=== PATIENT | male | born 1970 ===

== ENCOUNTER 2016-10-16 22:54 | Inpatient (IN) ==
--- NOTE | 2016-10-16 23:22 | Emergency Department Note ---
Adam Kolb Meredith, am scribing for, and in the presence of, Hunter Rey MD 23:20. Krissy Kolb Charles R, MD, personally performed the services described in this documentation, ascribed by Marleen Medina in my presence, and it is both accurate and complete 321 . Arrival - Arrival Chief Complaint: Abscess Stated Complaint: ABSCESS ED Nursing Triage Note: C/C transfer from [facility] ER for Dx fever, abscess to buttock, +FLu. Pt was given Rocephin 1g, Tylenol 1g, [id number], phenergan 25mg , Lomotil 4mg. Mode of Arrival: Stretcher Limitations: No Limitations Source: Patient, Old Records Reviewed, RN Notes Reviewed Time Seen by Provider: 10/16/16 23:04 - History of Present Illness HPI Narrative: Pt is a 46 y/o [place] male transferred to the ED by EMS from [facility] for further evaluation of abscess to the buttock and fever for the past 2 days. At the time of triage, his temperature was 103. Pt was positive for influenza A at [facility]. He was given Rocephin 1g, Tylenol 1 g, Demerol 50, phenergan 25 mg, and Lomotil 4 mg. Pt has a history of CHF, HTN, PVD, IDDM, renal failure, and multiple toe/ finger amputations. He attends dialysis on //. Pt is a current everyday smoker. Onset (ago): day(s) Allergies/Adverse Reactions: Allergies Allergy/AdvReac Type Severity Reaction Status Date / Time No Known Allergies Allergy Verified 10/16/16 23:10 Home Medications: Home Medications Medication Instructions Recorded Confirmed Type Lisinopril [Lisinopril] 10 mg PO DAILY 04/13/16 10/16/16 History Metoprolol Tartrate [Metoprolol 50 mg PO DAILY 04/13/16 10/16/16 History Tartrate] Losartan [Cozaar] 1 tablet PO DAILY 07/07/16 10/16/16 History Review of System - Review of System 12 point system: reviewed and no additional remarkable complaints except as stated - Review of System Constitutional: Present: as per HPI, fever Skin: Present: as per HPI, other (abscess to the right buttock) Medical,Surgical,& Family Hx - Medical History Cardio: History of: CHF, Hypertension, PVD Psychological: History of: Behavior Problems (VERY AGITATED UNCOOPERATIVE) Neurology: No history of: Seizures HEENT: History of: Dental Problems, HEENT Problems Endocrine: History of: Diabetes Mellitus (IDDM) (NO MEDS) Renal: History of: Dialysis (-- DR ORDONEZ), Renal Failure Musculoskeletal: History of: Amputation (TOES ON LEFT FOOT, MULTIPLE DEBRIDEMENTS TO FOOT,FINGERS TO RT &LT HANDS), Musculoskeletal Problems ( multiple finger amputations) - Surgical History Thoracic Surgeries: Patient denies;: Lobectomy Neurologic Surgeries: Patient denies: Neurologic Surgery Abdominal Surgeries: Patient denies: Abdominal Surgery - Family History Family History: Reports;: Family Cancer (father had lung cancer and maternal grandmother had breast cancer), Family Diabetes (father, paternal grandfather, siblings, mother), Family Hypertension (PARENTS) Denies;: Family Heart Disease - Social History Smoking Status: Current every day smoker Frequency of Alcohol Use: None Type of Drug Use: None Exam Vital Signs: Vital Signs Temperature 103 F H 10/16/16 22:58 Pulse Rate 87 10/16/16 22:58 Respiratory Rate 24 10/16/16 22:58 Blood Pressure 114/53 10/16/16 22:58 O2 Sat by Pulse Oximetry 88 L 10/16/16 22:58 - General General appearance: alert, in no apparent distress - Head Head exam: Present: atraumatic, normocephalic - Eye Eye exam: Present: normal appearance, PERRL, EOMI - ENT ENT exam: Present: mucous membranes moist, normal external ear exam - Neck Neck exam: Present: full ROM, trachea midline. Absent: tenderness, meningismus , lymphadenopathy, thyromegaly - Chest Chest inspection: Present: symmetric chest wall rise. Absent: tenderness, rash - Respiratory Respiratory exam: Present: normal lung sounds bilaterally. Absent: accessory muscle use, respiratory distress - Cardiovascular Cardiovascular exam: Present: regular rate, normal rhythm, normal heart sounds. Absent: murmur, rubs, gallop - Abdominal Exam Abdominal exam: Present: soft, normal bowel sounds. Absent: distention, tenderness - Extremities Exam Extremities exam: Present: full ROM, normal capillary refill. Absent: tenderness, pedal edema, calf tenderness - Back Exam Back exam: Present: full ROM. Absent: tenderness - Neurological Exam Neurological exam: Present: alert, oriented X3, CN II-XII intact. Absent: motor sensory deficit - Psychiatric Psychiatric exam: Present: normal affect, normal mood - Skin Skin exam: Present: warm, dry, other (large 12cm x 8 cm tender and indurated abscess to the right buttock) Course - Consultations Consultation #1: Hospitalist will admit patient Time: 23:36 Results - Labs CBC & BMP: 10/16/16 23:47 10/16/16 23:47 Lab Results: I have reviewed the patients labs Labs: All results reviewed from previous facility Laboratory Tests 10/16/16 23:47 WBC 15.6 H RBC 3.40 L Hgb 10.3 L Hct 31.7 L Plt Count 193 Neut % (Auto) 86.5 H Lymph % (Auto) 5.1 L Neut # (Auto) 13.5 H Lymph # (Auto) 0.8 L [place] # (Auto) 1.1 H Critical Care Time Critical Care Time: Yes Total Critical Care Time: 60 Disposition Clinical Impression: Cellulitis, Abscess of skin or subcutaneous tissue, Fever, Influenza, ESRD ( end stage renal disease) on dialysis, ESRD on hemodialysis, PVD (peripheral vascular disease) Case discussed with: patient Disposition: Still a Patient Condition: Guarded Time of Disposition: 23:37
[2016-10-16] MEDS ORDERED: PIPERACILLIN/TAZOBACTAM 2,250 MG in SODIUM CHLORIDE 0.9% 100 ML IV STA (23:37)
[2016-10-16] MEDS ORDERED: ALBUTEROL/IPRATROPIUM 3 ML NEB RESP TX STA (23:37)
[2016-10-16] MEDS ORDERED: methylPREDNISolone SOD SUC 125 MG/2 ML VIAL IV STA (23:37)
[2016-10-16] MEDS ORDERED: OSELTAMIVIR 75 MG CAPSULE PO STA (23:37)
[2016-10-16] MEDS ORDERED: VANCOMYCIN INJ 1,000 MG in SODIUM CHLORIDE 0.9% 250 ML IV STA (23:42)
[2016-10-16] MEDS ORDERED: VANCOMYCIN 1,000 MG VIAL ONE (23:59)
[2016-10-17 00:03] LABS: Basophils % 0.2 % (0.0-0.8); Hematocrit 31.7 VOL% (42.0-52.0); Hemoglobin 10.3 GM/DL (14.0-18.0); Immature Granulocytes % 0.9 %; Immature Granulocytes Absolute 0.14 #; Lymphocytes # 0.8 10*3/uL (1.4-4.0); Lymphocytes % 5.1 % (21.2-54.2); Mean Corpuscular HGB Conc 32.5 GM/DL (32-36); Mean Corpuscular Hemoglobin 30 PG (27-34); Mean Corpuscular Volume 93.2 FL (87-102); Monocytes # 1.1 10*3/uL (0.11-0.8); Monocytes % 7.3 % (1.7-12.7); Neutrophils # 13.5 10*3/uL (1.4-7.4); Neutrophils % 86.5 % (38.7-73.9); Platelet Count 193 T/CUMM (130-400); White Blood Count 15.6 T/CUMM (4-12)
[2016-10-17 00:20] LABS: Bilirubin,Total 0.9 MG/DL (0.2-1.0); Calcium 7.8 MG/DL (8.5-10.1); Osmolality,Calculated 289.7 MOS/KG (273-304); Total Protein 6.8 G/DL (6.4-8.3)
[2016-10-17] MEDS ORDERED: methylPREDNISolone SOD SUC 125 MG/2 ML VIAL ONE (00:28)
[2016-10-17] MEDS ORDERED: OSELTAMIVIR 75 MG CAPSULE ONE (00:28)
--- NOTE | 2016-10-17 01:08 | General Surgery Consult Note ---
Assessment and Plan (1) Abscess of skin or subcutaneous tissue Status: Acute Assessment and plan: This patient has a perirectal abscess. I recommended exam under anesthesia with drainage in the operating room. The patient also tested positive for the flu today and [facility] to [facility]. He is being admitted by the hospitalist service and he is also end-stage renal disease patient so nephrology will be consulted. I do not see any indication that he needs to go to the operating room immediately and he would benefit from resuscitation and antibiotics and we will plan on draining this abscess tomorrow. Current Visit: Yes History of Present Illness Chief complaint: Anal pain History of present illness: Mr. Leon is a 46 year old male with end-stage renal disease on hemodialysis who is transferred here from [facility] for anal pain and also testing positive for the flu. The patient was febrile to 103 but his vital signs are otherwise unremarkable. He has been having pain in his anal region for several days. Home Medications Medication Instructions Recorded Confirmed Type Lisinopril [Lisinopril] 10 mg PO DAILY 04/13/16 10/16/16 History Metoprolol Tartrate [Metoprolol 50 mg PO DAILY 04/13/16 10/16/16 History Tartrate] Losartan [Cozaar] 1 tablet PO DAILY 07/07/16 10/16/16 History Allergies Allergy/AdvReac Type Severity Reaction Status Date / Time No Known Allergies Allergy Verified 10/16/16 23:10 Medical,Surgical,& Family Hx - Medical History Cardio: History of: CHF, Hypertension, PVD Psychological: History of: Behavior Problems (VERY AGITATED UNCOOPERATIVE) Neurology: No history of: Seizures HEENT: History of: Dental Problems, HEENT Problems Endocrine: History of: Diabetes Mellitus (IDDM) (NO MEDS) Renal: History of: Dialysis (-W- DR ORDONEZ), Renal Failure Musculoskeletal: History of: Amputation (TOES ON LEFT FOOT, MULTIPLE DEBRIDEMENTS TO FOOT,FINGERS TO RT &LT HANDS), Musculoskeletal Problems ( multiple finger amputations) - Surgical History Thoracic Surgeries: Patient denies;: Lobectomy Neurologic Surgeries: Patient denies: Neurologic Surgery Abdominal Surgeries: Patient denies: Abdominal Surgery - Family History Family History: Reports;: Family Cancer (father had lung cancer and maternal grandmother had breast cancer), Family Diabetes (father, paternal grandfather, siblings, mother), Family Hypertension (PARENTS) Denies;: Family Heart Disease - Social History Smoking Status: Current every day smoker Frequency of Alcohol Use: None Type of Drug Use: None - Constitutional Constitutional: Present: as per HPI - EENT Nose, mouth and throat: Present: as per HPI - Cardiovascular Cardiovascular: Present: as per HPI - Respiratory Respiratory: Present: as per HPI - Gastrointestinal Gastrointestinal: Present: as per HPI - Genitourinary Genitourinary: Present: as per HPI - Musculoskeletal Musculoskeletal: Present: as per HPI - Neurological Neurological: Present: as per HPI - Endocrine Endocrine: Present: as per HPI Hematologic/Lymphatic: Present: as per HPI Exam - Constitutional Vitals: Period Temp Pulse Resp BP Sys/Miller Pulse Ox Last 24 Hr 103 F-103 F 84-87 20-24 114-114/53-53 88-100 General appearance: no acute distress, over weight - Head Head exam: Present: normal inspection, normocephalic - Eye Eye exam: Present: EOMI Pupils: Present: DINA - ENT ENT exam: Present: normal exam Mouth exam: Present: normal external inspection, normal voice - Neck Neck exam: Present: normal inspection, trachea midline - Respiratory Respiratory exam: Present: clear to auscultation bilaterally. Absent: accessory muscle use, chest wall tenderness - Cardiovascular Cardiovascular exam: Present: RRR. Absent: systolic murmur, tachycardia - GI/Abdominal GI/Abdominal exam: Present: normal bowel sounds, soft. Absent: tenderness, rebound - Anus/Rectum Anus/Rectum: other (The patient has a perirectal abscess.) - Extremities Exam Extremities exam: Present: normal inspection, normal capillary refill - Back Exam Back exam: Present: normal inspection - Neurological Exam Neurological exam: Present: alert, oriented X3 Speech: Present: normal - Skin Skin exam: Present: normal color, warm Results - Labs CBC & BMP: 10/16/16 23:47 10/16/16 23:47
[2016-10-17] MEDS ORDERED: ALBUTEROL/IPRATROPIUM 3 ML NEB RESP TX PRN (01:46)
--- NOTE | 2016-10-17 01:54 | Hospitalist History & Physical ---
Assessment and Plan (1) Sepsis due to cellulitis Problem details: Space Dr. Bertrand has seen the patient, plans incision and debridement for source control, patient n.p.o. Given ESRD, and history of multiple recurrent abscesses, cover with broad- spectrum antibiotics including vancomycin to cover for MRSA and Zosyn to cover for gram-negative organisms to include Pseudomonas - will follow up intra-op deep cultures for organism- targeted therapy Pharmacy consult for antibiotic dosing in ESRD Hydrocodone for pain control Status: Acute Current Visit: Yes (2) Abscess of skin or subcutaneous tissue Status: Acute Current Visit: Yes (3) Influenza Problem details: Tested positive for influenza A at the [facility] Continue Tamiflu, pharmacy to help dose Follow-up chest x-ray read, unable to view image Continue nasal cannula, pulse oximetry Status: Acute Current Visit: Yes (4) ESRD on hemodialysis Problem details: Dialyzes Tuesday No acute indication for dialysis We will consult nephrology if he require dialysis and patient, likely Tuesday Status: Chronic Current Visit: Yes (5) Hypertension Problem details: Continue lisinopril, metoprolol, hold losartan Does not seem to be taking the nifedipine that I see on some medication lists Status: Chronic Current Visit: Yes Qualifiers: Hypertension type: secondary to other renal disorders Qualified Code(s): I15.1 - Hypertension secondary to other renal disorders; N28.89 - Other specified disorders of kidney and ureter (6) Uncontrolled type 2 diabetes mellitus with hyperglycemia Problem details: Patient denies taking any medications at home, although I see that Levemir has been prescribed to him Perioperatively cover with low-dose sliding scale insulin, change to basal bolus as needed Status: Acute Current Visit: Yes (7) Obstructive lung disease Problem details: I am unclear on this history, however patient reports using nebulizers at home Ordered as needed nebulizer treatments Status: Acute Current Visit: Yes History of Present Illness Chief complaint: Boil on buttocks History of present illness: Mr. Leon is a 46 year old [place] male with past medical history of end- stage renal disease, dialyzes Tuesday, hypertension, diabetes, recurrent episodes of cellulitis, multiple digital amputations that presented from [facility] with a chief complaint of a boil on his buttocks. Onset Tuesday. Location right perirectal region. Pain that is sharp, constant, tender to touch. It has not opened up and spontaneously started draining. He has had multiple similar problems before requiring trips to the operating room for drainage. He has had associated symptoms of fever to 103 and diarrhea. He reports decreased intake due to not feeling well. Dr. Bertrand has evaluated the patient and plans to take him to the operating room for incision and drainage tomorrow morning, has requested that he be n.p.o. Patient states that the only medications he is actually taking her lisinopril, losartan, metoprolol, and nebulizer treatments at home "6 times a day." He denies any medications for diabetes, and does not seem to be taking medications on the outside hospital list to include nifedipine. Home Medications Medication Instructions Recorded Confirmed Type Lisinopril [Lisinopril] 10 mg PO DAILY 04/13/16 10/16/16 History Metoprolol Tartrate [Metoprolol 50 mg PO DAILY 04/13/16 10/16/16 History Tartrate] Losartan [Cozaar] 1 tablet PO DAILY 07/07/16 10/16/16 History Allergies Allergy/AdvReac Type Severity Reaction Status Date / Time No Known Allergies Allergy Verified 10/16/16 23:10 Medical,Surgical,& Family Hx - Medical History Cardio: History of: CHF, Hypertension, PVD Psychological: History of: Behavior Problems (VERY AGITATED UNCOOPERATIVE) Neurology: No history of: Seizures HEENT: History of: Dental Problems, HEENT Problems Endocrine: History of: Diabetes Mellitus (IDDM) (NO MEDS) Renal: History of: Dialysis (-- DR ORDONEZ), Renal Failure Musculoskeletal: History of: Amputation (TOES ON LEFT FOOT, MULTIPLE DEBRIDEMENTS TO FOOT,FINGERS TO RT &LT HANDS), Musculoskeletal Problems ( multiple finger amputations) - Surgical History Thoracic Surgeries: Patient denies;: Lobectomy Neurologic Surgeries: Patient denies: Neurologic Surgery Abdominal Surgeries: Patient denies: Abdominal Surgery - Family History Family History: Reports;: Family Cancer (father had lung cancer and maternal grandmother had breast cancer), Family Diabetes (father, paternal grandfather, siblings, mother), Family Hypertension (PARENTS) Denies;: Family Heart Disease - Social History Smoking Status: Current every day smoker Have you smoked in the last 12 months: Yes (30 year smoker) Frequency of Alcohol Use: None Type of Drug Use: None Lives With:: Aunt Functional capacity: independent ambulation Review of systems: - Constitutional Constitutional: Present: Fever, chills absent: night sweats, weight loss - EENT Eyes: Absent: blurry vision Ears: Absent: decreased hearing, ear pain Nose, mouth and throat: Absent: nasal congestion, sore throat - Cardiovascular Cardiovascular: Absent: chest pain at rest, chest pain with activity, dyspnea on exertion, edema, orthopnea, palpitations - Respiratory Respiratory: Absent: cough, dyspnea, hemoptysis - Gastrointestinal Gastrointestinal: Present: Diarrhea absent: abdominal pain, constipation, dysphagia, hematemesis, hematochezia, melena, nausea, vomiting - Genitourinary Genitourinary: Absent: difficulty urinating, dysuria, hematuria - Musculoskeletal Musculoskeletal: Present: Multiple amputations absent: arthralgias, joint swelling, myalgias - Neurological Neurological: Present: Neuropathy absent: confusion, dizziness, focal weakness, headache(s), syncope - Psychiatric Psychiatric: Absent: anxiety, depression - Endocrine Endocrine: Absent: cold intolerance, heat intolerance, polydipsia, polyuria - Hematologic/Lymphatic Hematologic/Lymphatic: Absent: easy bleeding, easy bruising, lymphadenopathy Exam - Constitutional Vitals: Period Temp Pulse Resp BP Sys/Miller Pulse Ox Last 24 Hr 103 F-103 F 84-87 20-24 114-114/53-53 88-100 General appearance: over weight, disheveled, other ([place] male) Exam: - Eye Eye exam: Present: EOMI. Absent: conjunctival injection, scleral icterus Pupils: Present: DINA - ENT ENT exam: Present: normal external ear exam, normal oropharynx - Expanded ENT Exam Mouth exam: Present: moist - Neck Neck exam: Present: normal inspection. Absent: lymphadenopathy, thyromegaly - Respiratory Respiratory exam: Present: Mildly coarse at the bases, otherwise clear to auscultation bilaterally. Absent: accessory muscle use, rales, rhonchi, wheezes - Cardiovascular Cardiovascular exam: Present: regular rate and rhythm. AV fistula in right upper extremity with good thrill absent: diastolic murmur, systolic murmur - GI/Abdominal GI/Abdominal exam: Present: normal bowel sounds, soft. Absent: distended, hyperactive bowel sounds, hypoactive bowel sounds, organomegaly, tenderness, rebound -Rectal Rectal exam: Present: Warm, tender, fluctuant area to the right of his anus, no spontaneous drainage - Extremities Exam Extremities exam: Present: Multiple digital amputations Absent: edema - Neurological Exam Neurological exam: Present: alert, oriented X3, CN II-XII intact. Absent: motor deficit - Psychiatric Psychiatric exam: Present: normal affect - Skin Skin exam: Present: warm, dry. Absent: diaphoretic, rash Results - Labs CBC & BMP: 10/16/16 23:47 10/16/16 23:47
[2016-10-17] MEDS ORDERED: ONDANSETRON 4 MG/2 ML VIAL IV PRN (05:40)
[2016-10-17] MEDS ORDERED: HYDROmorphone 2 MG/1 ML VIAL IV PRN (05:40)
--- NOTE | 2016-10-17 06:45 | Operative Note ---
Date of procedure: 10/17/16 Pre-op diagnosis: Perirectal abscess Post-op diagnosis: same Procedure: Preoperative diagnosis Perirectal abscess Postoperative diagnosis Same Procedures performed 1. Rectal exam under anesthesia 2. Incision and drainage of perirectal abscess Findings A large right-sided perirectal abscess was drained and cultures were sent to the lab. the wound was irrigated and packed with Kerlix. The patient became bradycardic and hypotensive during the procedure and a brief episode of chest compressions was performed. For this reason he was left intubated and transferred to the ICU. Complications None apparent Specimen Cultures Anesthesia GETA Blood loss 5 oh Indications Perirectal abscess Description of procedure The patient was taken to the operating room and transferred to the operating table in the supine position. Pressure points were padded and SCDs were placed to lower extremities. General anesthesia was administered. The patient was placed in lithotomy position and the perineum was prepped with Betadine and draped sterilely. Preoperative antibiotics were administered, and a timeout was performed. Rectal exam under anesthesia revealed a fluctuant mass in the right perirectal tissues. The abscess was drained externally with a scalpel. Loculations were broken up with digital manipulation. Cultures were sent from the purulent fluid that was drained. The patient became bradycardic and hypotensive so brief episode of CPR was performed and ACLS medications were administered with good response initially. Because of this severity of the patient's illness he was left intubated and transferred to the ICU after his wound was packed and a dressing was applied. Postoperative plan Continue resuscitation Antibiotics and wound care Implants: kerlix packing gauze Anesthesia: GETA Surgeon / Physician: Charles Bertrnad Estimated blood loss: minimal Specimens: other (cultures) Condition: stable Disposition: PACU Results - Labs CBC & BMP: 10/16/16 23:47 10/16/16 23:47 Discharge Plan - Discharge Medications No Action Metoprolol Tartrate [Metoprolol Tartrate] 50 mg PO DAILY Lisinopril [Lisinopril] 10 mg PO DAILY Losartan [Cozaar] 1 tablet PO DAILY - Follow Up or Referral - Forms/Instructions
[2016-10-17] MEDS ORDERED: PHENYLEPHRINE DRIP 20 MG/250 ML PREMIX IV ONE (06:59)
[2016-10-17] MEDS ORDERED: MIDAZOLAM 2 MG/2 ML VIAL IV PRN (07:03)
[2016-10-17] MEDS ORDERED: EPINEPHrine 1 MG/ML VIAL ONE (07:27)
[2016-10-17] MEDS ORDERED: PROPOFOL 200 MG/20 ML VIAL IV ONE (07:35)
[2016-10-17] MEDS ORDERED: MIDAZOLAM 2 MG/2 ML VIAL ONE (07:36)
[2016-10-17] MEDS ORDERED: ROCURONIUM 100 MG/10 ML VIAL IV ONE (07:36)
[2016-10-17] MEDS ORDERED: ATROPINE 1 MG/10 ML SYRINGE ONE (07:36)
[2016-10-17] MEDS ORDERED: EPINEPHrine 1 MG/10 ML SYRINGE ONE (07:36)
[2016-10-17] MEDS ORDERED: ONDANSETRON 4 MG/2 ML VIAL ONE (07:36)
[2016-10-17] MEDS ORDERED: fentaNYL 100 MCG/2 ML VIAL ONE (07:36)
[2016-10-17] MEDS ORDERED: NOREPINEPHRINE 4 MG/4 ML VIAL IV ONE (07:44)
[2016-10-17] MEDS ORDERED: VASOPRESSIN 100 UNITS in SODIUM CHLORIDE 0.9% 95 ML IV SCH (08:00)
--- NOTE | 2016-10-17 08:11 | Pulmonology Consult Note ---
Assessment and Plan (1) Perirectal abscess Status: Acute Assessment and plan: The patient apparently has a large perirectal abscess that has been drained Current Visit: Yes (2) ESRD on hemodialysis Problem details: Dialyzes Tuesday No acute indication for dialysis We will consult nephrology if he require dialysis and patient, likely Tuesday Status: Chronic Assessment and plan: Patient is a dialysis patient and will be followed by renal Current Visit: Yes (3) PVD (peripheral vascular disease) Status: Acute Assessment and plan: The patient has diabetic peripheral vascular disease and has lost several digits Current Visit: Yes (4) Influenza Problem details: Tested positive for influenza A at the [facility] Continue Tamiflu, pharmacy to help dose Follow-up chest x-ray read, unable to view image Continue nasal cannula, pulse oximetry Status: Acute Assessment and plan: Patient has a positive influenza titer and is on Tamiflu. Current Visit: Yes (5) Sepsis due to cellulitis Problem details: Space Dr. Bertrand has seen the patient, plans incision and debridement for source control, patient n.p.o. Given ESRD, and history of multiple recurrent abscesses, cover with broad- spectrum antibiotics including vancomycin to cover for MRSA and Zosyn to cover for gram-negative organisms to include Pseudomonas - will follow up intra-op deep cultures for organism- targeted therapy Pharmacy consult for antibiotic dosing in ESRD Hydrocodone for pain control Status: Acute Assessment and plan: The patient has been hypotensive and may be septic. He is getting antibiotics and pressors Current Visit: Yes (6) Hypertension Problem details: Continue lisinopril, metoprolol, hold losartan Does not seem to be taking the nifedipine that I see on some medication lists Status: Chronic Assessment and plan: He has been hypotensive early on. Current Visit: Yes Qualifiers: Hypertension type: secondary to other renal disorders Qualified Code(s): I15.1 - Hypertension secondary to other renal disorders; N28.89 - Other specified disorders of kidney and ureter (7) Uncontrolled type 2 diabetes mellitus with hyperglycemia Problem details: Patient denies taking any medications at home, although I see that Levemir has been prescribed to him Perioperatively cover with low-dose sliding scale insulin, change to basal bolus as needed Status: Acute Assessment and plan: His glucose is 203 Current Visit: Yes (8) On mechanically assisted ventilation Status: Acute Assessment and plan: We will continue ventilatory support for now. Current Visit: Yes (9) Obstructive lung disease Problem details: I am unclear on this history, however patient reports using nebulizers at home Ordered as needed nebulizer treatments Status: Acute Assessment and plan: The patient apparently is a smoker and uses nebulizer treatments at home Current Visit: Yes History of Present Illness Chief complaint: Ventilator management History of present illness: Mr. Leon is a 46 year old male has a history of end-stage renal disease on dialysis. He is a diabetic with hypertension and has had previous amputations of some digits. He went to the [facility] with a ball on his buttocks. He has developed a large perirectal abscess. He also tested positive for influenza. He was sent down for the perirectal abscess and was taken to surgery. The abscess was drained but he did have a vagal reaction and hypotension and required pressors. He is now on the ventilator in the ICU. He is felt to possibly be septic. His blood pressure is a little better on pressors and he appears a little more stable on the ventilator. Home Medications Medication Instructions Recorded Confirmed Type Lisinopril [Lisinopril] 10 mg PO DAILY 04/13/16 10/16/16 History Metoprolol Tartrate [Metoprolol 50 mg PO DAILY 04/13/16 10/16/16 History Tartrate] Losartan [Cozaar] 1 tablet PO DAILY 07/07/16 10/16/16 History Allergies Allergy/AdvReac Type Severity Reaction Status Date / Time No Known Allergies Allergy Verified 10/16/16 23:10 ROS unobtainable: due to endotracheal tube (He is unable to give any history at present.) Exam (Pulmonay) H&P - Constitutional Vitals: Period Temp Pulse Resp BP Sys/Miller Pulse Ox Last 24 Hr 97.6 F-100.2 F 80-120 14-21 100-176/32-82 97-100 General appearance: normal weight, other (Patient is sedated on the ventilator at present) - Head Head exam: Present: normal inspection - Eye Eye exam: Present: EOMI. Absent: scleral icterus Pupils: Present: DINA - ENT ENT exam: Present: normal exam, other (ET tube in good position) - Neck Neck exam: Absent: lymphadenopathy, thyromegaly - Respiratory Respiratory exam: Present: clear to auscultation bilaterally. Absent: wheezes - Cardiovascular Cardiovascular exam: Present: regular rate and rhythm, tachycardia. Absent: gallop - GI/Abdominal GI/Abdominal exam: Present: hypoactive bowel sounds, soft. Absent: organomegaly , tenderness - Extremities Exam Extremities exam: Present: other (He has had multiple amputations of digits.). Absent: calf tenderness, edema - Neurological Exam Neurological exam: Present: other (Patient is sedated at present) - Skin Skin exam: Present: warm, dry Medical,Surgical,& Family Hx - Medical History Cardio: History of: CHF, Hypertension, PVD Psychological: History of: Behavior Problems (VERY AGITATED UNCOOPERATIVE) Neurology: No history of: Seizures HEENT: History of: Dental Problems, HEENT Problems Endocrine: History of: Diabetes Mellitus (IDDM) (NO MEDS) Renal: History of: Dialysis (- DR ORDONEZ), Renal Failure Musculoskeletal: History of: Amputation (TOES ON LEFT FOOT, MULTIPLE DEBRIDEMENTS TO FOOT,FINGERS TO RT &LT HANDS), Musculoskeletal Problems ( multiple finger amputations) - Surgical History Thoracic Surgeries: Patient denies;: Lobectomy Neurologic Surgeries: Patient denies: Neurologic Surgery Abdominal Surgeries: Patient denies: Abdominal Surgery - Family History Family History: Reports;: Family Cancer (father had lung cancer and maternal grandmother had breast cancer), Family Diabetes (father, paternal grandfather, siblings, mother), Family Hypertension (PARENTS) Denies;: Family Heart Disease - Social History Smoking Status: Current every day smoker Frequency of Alcohol Use: None Type of Drug Use: None Results - Labs CBC & BMP: 10/16/16 23:47 10/16/16 23:47 - Diagnostic Findings Procedure: Chest x-ray: image reviewed by me, report reviewed by me (Chest x- ray is clear)
--- NOTE | 2016-10-17 08:18 | Operative Note ---
Date of procedure: 10/17/16 Pre-op diagnosis: Hypertension with inadequate venous access and need for invasive monitoring Post-op diagnosis: same Procedure: Preoperative diagnosis Hypotension with inadequate venous access and need for invasive monitoring Postoperative diagnosis Same Procedures performed 1. Right radial arterial line placement 2. Right internal jugular vein central line placement 3. Ultrasound guidance and interpretation of images Findings The radial artery arterial line was placed with a good waveform. The right internal jugular vein was compressible and was accessed with nonpulsatile venous blood return. Catheter was placed at 15 cm of the skin level. All 3 ports returned blood easily and were flushed with saline. Complications None apparent Specimen None Anesthesia None Blood loss None Indications Septic shock with inadequate venous access and need for invasive monitoring Description of procedure The patient was placed in the supine position and placed in Trendelenburg in his ICU bed. A knife was used to make a small incision over the radial artery pulse and a arterial line kit from [facility] was used to place a catheter in the arterial system in the radial artery. There is pulsatile blood return and the waveform looks good on the monitor when he was hooked up to the transducer. The catheter was sewn in place with 3-0 silk sutures and tape down with a sterile dressing. The right neck was then prepped with chlorhexidine and draped sterilely. Full sterile barrier precautions were used. An ultrasound was used to identify the vascular structures in the right neck. The jugular vein is compressible. There is accessed on first stick under ultrasound guidance with nonpulsatile venous blood return. Wire was passed easily into the central venous system and confirmed by ultrasound guidance. The needle was removed and the incision was made alongside the wire. A dilator was used to dilate the skin and subcutaneous tissues in the triple-lumen catheter was placed over the wire with a Seldinger technique. The catheter was placed in the skin level and all 3 ports were accessed. All 3 returned blood easily and were flushed with saline. Sewn in place with silk sutures. Sterile dressing was applied. Postoperative plan Chest x-ray Implants: triple lumen catheter Surgeon / Physician: Charles Bertrand Estimated blood loss: minimal Specimens: none sent Condition: critical Disposition: no change Results - Labs CBC & BMP: 10/16/16 23:47 10/16/16 23:47 Discharge Plan - Discharge Medications No Action Metoprolol Tartrate [Metoprolol Tartrate] 50 mg PO DAILY Lisinopril [Lisinopril] 10 mg PO DAILY Losartan [Cozaar] 1 tablet PO DAILY - Follow Up or Referral - Forms/Instructions
--- NOTE | 2016-10-17 08:20 | EKG Report ---
Stationary ECG Study [facility] Test Date: 10/17/2016 8:20:22 AM Pat Name: ALLI KRUEGER Department: Room: 110 Gender: M Supervisor Tubing: : 1970 Requested by: Mansoor Lange Order Number: [id number] Panchito MD: GARTH MITCHELL Intervals [place] Rate: 97 P: 64 MN: 159 QRS: -19 QRSD: 109 T: 127 QT: 367 QTc: 421 Interpretive Statements SINUS RHYTHM INCOMPLETE RIGHT BUNDLE BRANCH BLOCK Electronically Signed On 10-18-16 06:38:13 CDT by GARTH MITCHELL [email or web address]
--- NOTE | 2016-10-17 08:27 | Nephrology Consult Note ---
History of Present Illness Chief complaint: End-stage renal disease in a patient admitted with a perirectal abscess History of present illness: Mr. Leon is a 46 year old male who dialyzes on a Tuesday basis in [facility] [address]. The patient presented to his local ER yesterday with complaints of an abscess in his perirectal area. Patient was given a dose of antibiotics there and transferred here for further evaluation and treatment. The history is taken from the chart and healthcare personnel as the patient is unable to contribute to the history due to his medical condition. The patient had a temperature of 103 on presentation, he was brought to the ER after getting IV antibiotics, the patient underwent incision and drainage of the perirectal abscess and during this procedure the patient developed bradycardia and hypotension and briefly required chest compressions. The patient was subsequently moved to the intensive care unit after the procedure and remains ventilated and on pressors with levo fed. Review of systems unable to be obtained due to patient's medical condition PE: General: Chronically ill-appearing Eyes: Pupils are round and reactive his left pupil has some postsurgical changes , conjunctivae are clear ENT: Nose is clear, O/P is benign, he has ET tube in place Neck: Supple, no thyromegaly, he has a right IJ catheter in place Lymphatics: No cervical, supraclavicular or axillary adenopathy Heart: Regular rate and rhythm, no edema Lungs: Clear to auscultation anteriorly, chest expansion symmetric Abdomen: Soft, normoactive bowel sounds, no hepatomegaly Musculoskeletal: No joint erythema or effusions, he has multiple finger amputations and a toe amputation as well Skin: Normal turgor, normal hydration, no rash Neuro/Psych: Patient is sedate with propofol, his extremities are nonrigid Home Medications Medication Instructions Recorded Confirmed Type Lisinopril [Lisinopril] 10 mg PO DAILY 04/13/16 10/16/16 History Metoprolol Tartrate [Metoprolol 50 mg PO DAILY 04/13/16 10/16/16 History Tartrate] Losartan [Cozaar] 1 tablet PO DAILY 07/07/16 10/16/16 History Allergies Allergy/AdvReac Type Severity Reaction Status Date / Time No Known Allergies Allergy Verified 10/16/16 23:10 Medical,Surgical,& Family Hx - Medical History Cardio: History of: CHF, Hypertension, PVD Psychological: History of: Behavior Problems (VERY AGITATED UNCOOPERATIVE) Neurology: No history of: Seizures HEENT: History of: Dental Problems, HEENT Problems Endocrine: History of: Diabetes Mellitus (IDDM) (NO MEDS) Renal: History of: Dialysis (-W- DR ORDONEZ), Renal Failure Musculoskeletal: History of: Amputation (TOES ON LEFT FOOT, MULTIPLE DEBRIDEMENTS TO FOOT,FINGERS TO RT &LT HANDS), Musculoskeletal Problems ( multiple finger amputations) - Surgical History Thoracic Surgeries: Patient denies;: Lobectomy Neurologic Surgeries: Patient denies: Neurologic Surgery Abdominal Surgeries: Patient denies: Abdominal Surgery - Family History Family History: Reports;: Family Cancer (father had lung cancer and maternal grandmother had breast cancer), Family Diabetes (father, paternal grandfather, siblings, mother), Family Hypertension (PARENTS) Denies;: Family Heart Disease - Social History Smoking Status: Current every day smoker Frequency of Alcohol Use: None Type of Drug Use: None Exam - Vital Signs Vital signs: Period Temp Pulse Resp BP Sys/Miller Pulse Ox Last 24 Hr 97.6 F-100.2 F 80-120 14-21 100-176/32-82 97-100 Results - Labs CBC & BMP: 10/16/16 23:47 10/16/16 23:47 Assessment and Plan (1) Fever Status: Acute Current Visit: Yes (2) Hypotension Status: Acute Assessment and plan: Patient has responded well to Levophed, his CVP is 14 Current Visit: Yes (3) Cardiac arrest Status: Acute Assessment and plan: Patient developed bradycardia and hypotension and briefly required chest compressions intraoperatively Current Visit: Yes (4) ESRD (end stage renal disease) on dialysis Status: Acute Assessment and plan: We will plan on hemodialysis tomorrow Current Visit: Yes (5) Influenza Problem details: Tested positive for influenza A at the [facility] Continue Tamiflu, pharmacy to help dose Follow-up chest x-ray read, unable to view image Continue nasal cannula, pulse oximetry Status: Acute Current Visit: Yes (6) On mechanically assisted ventilation Status: Acute Assessment and plan: Continue vent support Current Visit: Yes (7) Perirectal abscess Status: Acute Assessment and plan: We will continue IV antibiotics Current Visit: Yes
[2016-10-17] MEDS ORDERED: NOREPINEPHRINE 8 MG in SODIUM CHLORIDE 0.9% 242 ML IV SCH (08:30)
--- NOTE | 2016-10-17 08:32 | XRay Report ---
History: Shortness of breath and fever Date: 10/16/2016 Study: Chest x-ray AP portable Comparison exam: February 18, 2015 chest x-ray There is cardiomegaly. The pulmonary vasculature is slightly prominent and ill-defined. There is no mediastinal mass. There is no gross pleural effusion. There is shallow inspiration with bronchovascular crowding in the lung bases. While there is no drea pneumonia, early inflammatory infiltrate in the medial right lung base would be difficult to exclude. The osseous structures are unchanged. Impression: Cardiomegaly and suspected mild CHF. Shallow inspiration with bronchovascular crowding in the lung bases PROCEDURE INTERPRETED AT [facility] DEPARTMENT OF RADIOLOGY Final Report Signed by: Dr. Sallie Garner
[2016-10-17 08:33] LABS: ABG Base Excess -5.1 MMOL/L (-2.5-2.5); ABG HCO3 21.2 MMOL/L (20-26); ABG PCO2 44.2 MM HG (35-48); ABG PH 7.298 (7.35-7.45); ABG PO2 315.4 MM HG (80-95); ABG TCO2 22.5 MMOL/L (23-27)
--- NOTE | 2016-10-17 08:40 | XRay Report ---
History: Sepsis, hypertension, diabetes. Postop central line placement Date: 10/17/2016 at 8:16 AM Study: Chest x-ray AP portable Comparison exam: 10/16/2016 The endotracheal tube is well-positioned. The right IJ central line is positioned with its tip over the atriocaval junction region. There is continued cardiomegaly. The mediastinal contour is unchanged. There is some mild strandy atelectatic change in either infrahilar area. There is no pneumothorax. There is no gross pleural effusion. Osseous structures are unchanged. Impression: The right IJ central line appears well positioned. No pneumothorax. Bibasilar atelectasis. PROCEDURE INTERPRETED AT [facility] DEPARTMENT OF RADIOLOGY Final Report Signed by: Dr. Sallie Garner
[2016-10-17] MEDS: PROPOFOL 1,000 MG/100 ML BOTTLE IV SCH ×4 (08:55→22:57)
[2016-10-17] MEDS: PHENYLEPHRINE DRIP 40 MG/250 ML PREMIX IV SCH (08:55)
[2016-10-17] MEDS: INSULIN LISPRO 100 UNIT/ML SUBCUT SCH ×4 (09:23→21:21)
[2016-10-17] MEDS: METOPROLOL TARTRATE 50 MG TABLET PO SCH (10:16)
[2016-10-17] MEDS: LISINOPRIL 10 MG TABLET PO SCH (10:17)
[2016-10-17] MEDS: OSELTAMIVIR 30 MG CAPSULE PO SCH ×2 (10:19→11:05)
[2016-10-17] MEDS: HYDROmorphone 2 MG/1 ML VIAL IV PRN ×2 (10:22→21:29)
[2016-10-17] MEDS: PIPERACILLIN/TAZOBACTAM 3,375 MG in SODIUM CHLORIDE 0.9% 100 ML IV SCH ×2 (10:27→21:20)
--- NOTE | 2016-10-17 10:35 | XRay Report ---
History: Postop abdominal surgery. Sepsis. History of hypertension and diabetes Date: 10/17/2016 at 10:06 AM Study: Chest x-ray AP portable Comparison exam: 10/17/2016 at 8:16 AM The endotracheal tube and right IJ central line remain in generally satisfactory position. There is no pneumothorax. The exam was performed in shallow inspiration. There is continued cardiomegaly. There is increasing atelectatic change in the lung bases. Some underlying pneumonia cannot be excluded. There is no gross pleural effusion. The osseous structures are similar. Impression: Increasing bibasilar atelectasis. The supporting tubes are unchanged PROCEDURE INTERPRETED AT [facility] DEPARTMENT OF RADIOLOGY Final Report Signed by: Dr. Sallie Garner
[2016-10-18] MEDS: PROPOFOL 1,000 MG/100 ML BOTTLE IV SCH ×4 (03:14→22:44)
[2016-10-18 03:31] LABS: ABG Base Excess -1.9 MMOL/L (-2.5-2.5); ABG HCO3 22.8 MMOL/L (20-26); ABG PCO2 33.8 MM HG (35-48); ABG PH 7.419 (7.35-7.45); ABG TCO2 19.5 MMOL/L (23-27)
[2016-10-18 03:44] LABS: Basophils % 0.1 % (0.0-0.8); Hematocrit 31.4 VOL% (42.0-52.0); Hemoglobin 10.2 GM/DL (14.0-18.0); Immature Granulocytes % 0.9 %; Immature Granulocytes Absolute 0.19 #; Lymphocytes # 0.9 10*3/uL (1.4-4.0); Lymphocytes % 4.2 % (21.2-54.2); Mean Corpuscular HGB Conc 32.5 GM/DL (32-36); Mean Corpuscular Hemoglobin 30 PG (27-34); Mean Corpuscular Volume 92.4 FL (87-102); Mean Platelet Volume 11.9 FL (9.6-12.0); Monocytes # 1.5 10*3/uL (0.11-0.8); Monocytes % 7.3 % (1.7-12.7); Neutrophils # 18.4 10*3/uL (1.4-7.4); Neutrophils % 87.5 % (38.7-73.9); Platelet Count 195 T/CUMM (130-400); Red Cell Distribution Width 16.2 % (9.3-17.3)
[2016-10-18 04:05] LABS: Calcium 8.1 MG/DL (8.5-10.1); Magnesium 2.6 MG/DL (1.8-2.4); Osmolality,Calculated 308.4 MOS/KG (273-304); Potassium 4.8 MMOL/L (3.5-5.1)
[2016-10-18 04:37] LABS: Band Neutrophils 1 % (0-10); Lymphocytes 4 % (20-55); Segmented Neutrophils 89 % (50-85); Total Cells Counted 100
[2016-10-18 04:38] LABS: Elliptocytes Few; Hypochromasia 1+; Platelet Estimate Adequate
--- NOTE | 2016-10-18 07:15 | XRay Report ---
Portable chest Date: 10/18/2016 Clinical history: Shortness of breath Comparison: 10/17/2016 Technique: Portable AP sitting chest Findings: Stable cardiomegaly and support devices. Minimally reduced parenchymal findings with stable mediastinum and osseous structures. Impression: Minimally reduced atelectasis in the lungs with stable supportive devices. PROCEDURE INTERPRETED AT [facility] DEPARTMENT OF RADIOLOGY Final Report Signed by: Dr. Malena Gates
[2016-10-18] MEDS ORDERED: CLINDAMYCIN INJ 900 MG in PREMIX 1 EACH IV ONE (07:41)
--- NOTE | 2016-10-18 07:51 | Event Note ---
General Surgery Progress Note Chief complaint This patient is a 46-year-old man with renal failure on hemodialysis admitted with sepsis due to a perirectal abscess and also recently diagnosed with influenza A treated with incision and drainage of perirectal abscess on 2016 Interval history The patient was unstable postoperatively yesterday and was left intubated. He is doing much better today and is off pressors now. He wakes up and follows commands. Physical exam The patient is afebrile with normal vital signs. The perirectal abscess has a foul odor and brown drainage with necrotic tissue in the wound. Labs Reviewed, white blood cell count is up to 21,000 Imaging Chest x-ray reviewed, unchanged Assessment and plan The patient will be taken back to the operating room for debridement of necrotic tissue in the perirectal abscess. In the operating room the abscess did spread up near the supralevator space so I have ordered a CT scan of the abdomen and pelvis with p.o. and IV contrast to determine whether or not this extends into the abdominal cavity or the pelvis. If it is very extensive in the operating room where the rectum is involved he will need a diverting colostomy and we will go ahead and consent him for this as well. Continue antibiotics and wound care
--- NOTE | 2016-10-18 08:13 | Hospitalist Progress Note ---
Assessment and Plan (1) Leukocytosis Status: Acute Current Visit: Yes (2) PVD (peripheral vascular disease) Status: Acute Current Visit: Yes (3) Influenza Problem details: Tested positive for influenza A at the [facility] Continue Tamiflu, pharmacy to help dose Status: Acute Current Visit: Yes (4) ESRD (end stage renal disease) on dialysis Status: Acute Assessment and plan: Nephrology on board Current Visit: Yes (5) Hypertension Problem details: Continue lisinopril, metoprolol, hold losartan Does not seem to be taking the nifedipine that I see on some medication lists Status: Chronic Current Visit: Yes Qualifiers: Hypertension type: secondary to other renal disorders Qualified Code(s): I15.1 - Hypertension secondary to other renal disorders; N28.89 - Other specified disorders of kidney and ureter (6) Uncontrolled type 2 diabetes mellitus with hyperglycemia Problem details: Patient denies taking any medications at home, although I see that Levemir has been prescribed to him Perioperatively cover with low-dose sliding scale insulin, change to basal bolus as needed Status: Acute Current Visit: Yes (7) Perirectal abscess Status: Acute Assessment and plan: S/p OR debridement 10/17 Plan for repeat debridement with possible diverting colostomy Vancomycin and zosyn Current Visit: Yes (8) On mechanically assisted ventilation Status: Acute Assessment and plan: Pulmonary managing Current Visit: Yes (9) Hypotension Status: Acute Assessment and plan: Improving Current Visit: Yes Hospitalist: Subjective Interval history: No acute events overnight. Off pressors this am. Awake on mechanical ventilation. He will go back to the OR for further debridement of his perirectal abscess with possible need for diverting colostomy. Leukocytosis worsening, continue zosyn and vancomycin for now. Blood cultures no growth to date. Exam - Constitutional Vitals: Period Temp Pulse Resp BP Sys/Miller Pulse Ox Last 24 Hr 97.1 F-97.9 F 52-88 12-26 93-172/49-79 100-100 General appearance: over weight - Head Head exam: Present: normocephalic, atraumatic - Eye Eye exam: Present: EOMI Pupils: Present: DINA - ENT ENT exam: Present: normal exam - Neck Neck exam: Present: normal inspection. Absent: tenderness - Respiratory Respiratory exam: Present: clear to auscultation bilaterally. Absent: rhonchi, wheezes - Cardiovascular Cardiovascular exam: Present: regular rate and rhythm - GI/Abdominal GI/Abdominal exam: Present: normal bowel sounds, soft. Absent: tenderness - Extremities Exam Extremities exam: Present: other (multiple digits missing) - Neurological Exam Neurological exam: Present: alert - Psychiatric Psychiatric exam: Present: other (intubated) - Skin Skin exam: Present: warm, intact Results - Labs CBC & BMP: 10/18/16 03:05 10/18/16 03:05
--- NOTE | 2016-10-18 08:16 | Pulmonology Progress Note ---
Pulmonary - PN: Subj Interval history: Patient is a 46-year-old that has end-stage renal disease on hemodialysis. He is a diabetic with multiple complications along with hypertension. He has a large perirectal abscess that was drained he was somewhat septic. He has been on the ventilator and is much more stable now. He is off Levophed and his blood pressure is better. His oxygenation is doing well on the ventilator. His chest x-ray has been clear. He is probably going back to surgery today for further debridement. Exam (Progress Note) - Constitutional Vitals: Period Temp Pulse Resp BP Sys/Miller Pulse Ox Last 24 Hr 97.1 F-97.9 F 52-88 12-26 93-172/49-79 100-100 Exam: General appearance: normal weight, other (Patient is sedated on the ventilator at present. His blood pressure is better.) - Head Head exam: Present: normal inspection - Eye Eye exam: Present: EOMI. Absent: scleral icterus Pupils: Present: DINA - ENT ENT exam: Present: normal exam, other (ET tube in good position) - Neck Neck exam: Absent: lymphadenopathy, thyromegaly - Respiratory Respiratory exam: Present: clear to auscultation bilaterally. Absent: wheezes - Cardiovascular Cardiovascular exam: Present: regular rate and rhythm, tachycardia. Absent: gallop - GI/Abdominal GI/Abdominal exam: Present: hypoactive bowel sounds, soft. Absent: organomegaly , tenderness - Extremities Exam Extremities exam: Present: other (He has had multiple amputations of digits.). Absent: calf tenderness, edema - Neurological Exam Neurological exam: Present: other (Patient is sedated at present) - Skin Skin exam: Present: warm, dry Results - Labs CBC & BMP: 10/18/16 03:05 10/18/16 03:05 Labs: PO2 is 268 with a PCO2 of 33 and a pH of 7.41 - Diagnostic Findings Procedure: Chest x-ray: image reviewed by me, report reviewed by me (Chest x- ray is clear.) Assessment and Plan (1) Perirectal abscess Status: Acute Assessment and plan: The patient apparently has a large perirectal abscess that has been drained. He will go back to surgery today for further drainage. Current Visit: Yes (2) ESRD on hemodialysis Problem details: Dialyzes Tuesday No acute indication for dialysis We will consult nephrology if he require dialysis and patient, likely Tuesday Status: Deleted Assessment and plan: Patient is a dialysis patient and will be followed by renal. He will probably get dialysis today. Current Visit: Yes (3) PVD (peripheral vascular disease) Status: Acute Assessment and plan: The patient has diabetic peripheral vascular disease and has lost several digits Current Visit: Yes (4) Influenza Problem details: Tested positive for influenza A at the [facility] Continue Tamiflu, pharmacy to help dose Follow-up chest x-ray read, unable to view image Continue nasal cannula, pulse oximetry Status: Acute Assessment and plan: Patient has a positive influenza titer and is on Tamiflu. Current Visit: Yes (5) Sepsis due to cellulitis Problem details: Space Dr. Bertrand has seen the patient, plans incision and debridement for source control, patient n.p.o. Given ESRD, and history of multiple recurrent abscesses, cover with broad- spectrum antibiotics including vancomycin to cover for MRSA and Zosyn to cover for gram-negative organisms to include Pseudomonas - will follow up intra-op deep cultures for organism- targeted therapy Pharmacy consult for antibiotic dosing in ESRD Hydrocodone for pain control Status: Acute Assessment and plan: The patient is much more stable and is off pressors now. Current Visit: Yes (6) Hypertension Problem details: Continue lisinopril, metoprolol, hold losartan Does not seem to be taking the nifedipine that I see on some medication lists Status: Chronic Assessment and plan: He has been hypotensive early on. His blood pressure a lot better now. Current Visit: Yes Qualifiers: Qualified Code(s): I15.1 - Hypertension secondary to other renal disorders; N28.89 - Other specified disorders of kidney and ureter (7) Uncontrolled type 2 diabetes mellitus with hyperglycemia Problem details: Patient denies taking any medications at home, although I see that Levemir has been prescribed to him Perioperatively cover with low-dose sliding scale insulin, change to basal bolus as needed Status: Acute Assessment and plan: His glucose is 219 Current Visit: Yes (8) On mechanically assisted ventilation Status: Acute Assessment and plan: We will continue ventilatory support for now. Current Visit: Yes (9) Obstructive lung disease Problem details: I am unclear on this history, however patient reports using nebulizers at home Ordered as needed nebulizer treatments Status: Acute Assessment and plan: The patient apparently is a smoker and uses nebulizer treatments at home Current Visit: Yes
[2016-10-18] MEDS: INSULIN LISPRO 100 UNIT/ML SUBCUT SCH ×4 (08:18→20:06)
[2016-10-18] MEDS: OSELTAMIVIR 30 MG CAPSULE PO SCH (08:19)
[2016-10-18] MEDS: METOPROLOL TARTRATE 50 MG TABLET PO SCH (08:19)
[2016-10-18] MEDS: LISINOPRIL 10 MG TABLET PO SCH (08:19)
[2016-10-18] MEDS ORDERED: VANCOMYCIN INJ 1,000 MG in SODIUM CHLORIDE 0.9% 250 ML IV PRN (09:08)
--- NOTE | 2016-10-18 09:25 | Anesthesia ---
Anesthesia Post OP - Post Ansesthetic Evaluation Patient seen in post op: Yes Resp: other (Sedated on Vent) CV: within normal limits Mental: other (Responds to verbal command when sedation off) Temp: within normal limits [id number]-[id number]: within normal limits Nausea and Vomiting: within normal limits Pain: within normal limits
--- NOTE | 2016-10-18 10:15 | Nephrology Progress Note ---
Nephrology - PN: Subj Interval history: Patient is intubated and sedate however he is awake and he has continued to have his ET tube taken out. Physical exam general the patient chronically ill-appearing, heart is regular rate and rhythm, he has no pitting edema, lungs are clear to auscultation anteriorly, abdomen is soft with positive bowel sounds Assessment/plan 1. End-stage renal disease-we will continue hemodialysis support 2. Diabetes mellitus 3. Perirectal abscess-continue antibiotics, the patient had gram-positive cocci grow out of 2 of 2 blood culture bottles 4. Hypotension this is resolved Exam (PN)-Nephrology - Vital Signs Vital signs: Period Temp Pulse Resp BP Sys/Miller Pulse Ox Last 24 Hr 97.1 F-97.9 F 52-69 12-26 93-146/51-77 100-100 - Lab 10/18/16 03:05 10/18/16 03:05 Most recent lab results ABG pH 7.419 (7.35-7.45) 10/18/16 03:05 ABG pCO2 33.8 MM HG (35-48) L 10/18/16 03:05 ABG pO2 268.0 MM HG (80-95) H 10/18/16 03:05 ABG HCO3 22.8 MMOL/L (20-26) 10/18/16 03:05 ABG O2 Saturation 99.0 % (95-100) 10/18/16 03:05 Calcium 8.1 MG/DL (8.5-10.1) L 10/18/16 03:05 Magnesium 2.6 MG/DL (1.8-2.4) H 10/18/16 03:05 Assessment and Plan (1) Fever Status: Acute Current Visit: Yes (2) Hypotension Status: Acute Assessment and plan: Patient has responded well to Levophed, his CVP is 14 Current Visit: Yes (3) Cardiac arrest Status: Acute Assessment and plan: Patient developed bradycardia and hypotension and briefly required chest compressions intraoperatively Current Visit: Yes (4) ESRD (end stage renal disease) on dialysis Status: Acute Assessment and plan: We will plan on hemodialysis tomorrow Current Visit: Yes (5) Influenza Problem details: Tested positive for influenza A at the [facility] Continue Tamiflu, pharmacy to help dose Status: Acute Current Visit: Yes (6) On mechanically assisted ventilation Status: Acute Assessment and plan: Continue vent support Current Visit: Yes (7) Perirectal abscess Status: Acute Assessment and plan: We will continue IV antibiotics Current Visit: Yes
--- NOTE | 2016-10-18 11:33 | CT Report ---
Referring physician: Nicholas Ayala MD EXAM: CT abdomen and pelvis with contrast DATE: 10/18/2016 COMPARISON: 01/08/2014 REASON: Possible perirectal abscess TECHNIQUE: Axial images of the abdomen and pelvis were obtained after administration of 100 cc of Omnipaque 350 IV contrast. Oral contrast was also administered. Coronal and sagittal reformatted images were also provided. Total DLP is 1879.90 mGy*cm. FINDINGS: The heart is enlarged with coronary artery calcification and calcification in the aortic valve. Atelectasis/infiltration in the lower lobes. Fatty infiltration of the liver with no masses or dilated ducts. Calcified gallstone. The spleen, pancreas, and adrenal glands are stable in appearance. Cortical scarring in the kidneys with small renal cysts. The arterial calcification which makes it more difficult to evaluate for nonobstructing renal calculi. No definite ureteral calculi are noted. Calcification in the wall of the nondilated abdominal aorta with no adjacent adenopathy. Nasogastric tube in the stomach which is minimally distended. Minimal distention of portions of the small bowel but the oral contrast reaches the colon. Diverticulosis colon with no evidence of diverticulitis, appendicitis, free air or free fluid. Soft tissue swelling in the inferior medial right buttock location. There is air in the soft tissues which extends to the area of the rectum/anus. The prostate measures 41 mm in diameter. Thickening of the wall of the urinary bladder. Chronic appearing degenerative changes and Schmorl's nodes in the spine. Decrease in the size of the right inguinal nodes. IMPRESSION: Findings consistent with abscess in the inferior right buttock extending into the level of the rectum/anus. Cardiomegaly with diffuse arterial calcifications. Atelectasis/infiltration in the lower lobes. Fatty infiltration of liver with cholelithiasis. Cortical scarring in kidneys with small renal cysts. Minimal distention of the stomach and small bowel which could be related to ileus with diverticulosis of the colon. Nonspecific enlargement of the prostate with associated thickening of the wall of the urinary bladder. The CT exam was performed using one or more of the following dose reduction techniques: Automated exposure control and adjustment of the mA and/or kV according to patient size. PROCEDURE INTERPRETED AT [facility] DEPARTMENT OF RADIOLOGY Final Report Signed by: Dr. Malena Gates
[2016-10-18] MEDS ORDERED: BUPIVACAINE MPF 0.25% /EPI 30 ML VIAL ONE (12:55)
[2016-10-18] MEDS ORDERED: LIDOCAINE 2% TOP JELLY 20 ML VIAL INTRAURETH ONE (12:55)
--- NOTE | 2016-10-18 14:48 | Operative Note ---
Date of procedure: 10/18/16 Pre-op diagnosis: Necrotizing soft tissue perirectal infection Post-op diagnosis: same Procedure: Preoperative diagnosis Necrotizing soft tissue infection perirectal abscess Postoperative diagnosis Same Procedures performed Excisional debridement of necrotic skin and subcutaneous tissue 20 cm Findings A necrotizing soft tissue infection was present in the right perirectal tissues. Excisional debridement of 20 cm of necrotic skin and subcutaneous tissue was performed with sharp dissection. Complications None apparent Specimen None Blood loss 50 Administration anesthesia GETA Indications Necrotizing soft tissue infection perirectal tissues Description of procedure The patient was taken to the operating room and transferred to the operating table in supine position. Pressure points were padded and SCDs were placed to lower extremities. He was placed in lithotomy position and the perineum was prepped with Betadine and draped sterilely. The patient was already receiving therapeutic antibiotics. Timeout was performed. There is a large amount of necrotic skin and subcutaneous tissue that was debrided with a scalpel and Callahan scissors. This measured 20 cm and including skin and subcutaneous tissue. There is a foul odor to the wound. This infection went into the sphincter muscle complex and carotid up to the rectum. It did not have an obvious fistula at this time. The wound was irrigated and dressed with Dakin's wet-to- dry dressing. The patient was transferred to recovery after he was awakened from anesthesia. Postoperative plan Continue wound care and antibiotics The patient will likely need further debridement in the OR but I am trying to spare the sphincter muscles for now I think we got good control at the current time Anesthesia: KAYLAA Surgeon / Physician: Charles Bertrand Estimated blood loss: minimal Specimens: none sent Condition: stable Disposition: ICU Results - Labs CBC & BMP: 10/18/16 03:05 10/18/16 03:05 Discharge Plan - Discharge Medications No Action Metoprolol Tartrate [Metoprolol Tartrate] 50 mg PO DAILY Lisinopril [Lisinopril] 10 mg PO DAILY Losartan [Cozaar] 1 tablet PO DAILY - Follow Up or Referral - Forms/Instructions
[2016-10-18] MEDS: PIPERACILLIN/TAZOBACTAM 3,375 MG in SODIUM CHLORIDE 0.9% 100 ML IV SCH ×2 (15:28→22:15)
[2016-10-18] MEDS ORDERED: ROCURONIUM 100 MG/10 ML VIAL IV ONE (16:44)
[2016-10-18] MEDS ORDERED: MIDAZOLAM 2 MG/2 ML VIAL ONE (16:44)
[2016-10-18] MEDS ORDERED: fentaNYL 100 MCG/2 ML VIAL ONE (16:44)
[2016-10-18] MEDS ORDERED: SEVOFLURANE 1 UNIT/15 MINUTE INH ONE (16:44)
--- NOTE | 2016-10-18 17:11 | Dialysis Note ---
Dialysis Note - Dialysis Note Patient seen on dialysis. Tolerating the procedure. Blood pressure 100/50 will continue with current management.
[2016-10-18] MEDS ORDERED: PHENYLEPHRINE DRIP 40 MG/250 ML PREMIX IV ONE (19:22)
[2016-10-18 19:23] LABS: Hematocrit 27.4 VOL% (42.0-52.0); Hemoglobin 8.9 GM/DL (14.0-18.0)
[2016-10-18] MEDS: PHENYLEPHRINE DRIP 40 MG/250 ML PREMIX IV SCH (19:40)
[2016-10-18] MEDS: HYDROmorphone 2 MG/1 ML VIAL IV PRN (19:54)
[2016-10-19] MEDS: PROPOFOL 1,000 MG/100 ML BOTTLE IV SCH ×4 (00:58→07:09)
[2016-10-19 03:52] LABS: ABG HCO3 23.5 MMOL/L (20-26); ABG Oxygen Saturation 95.2 % (95-100); ABG PCO2 35.5 MM HG (35-48); ABG PH 7.421 (7.35-7.45); ABG TCO2 21.2 MMOL/L (23-27); Allen Test Positive; Pt O2 Delivery Device Ventilator
[2016-10-19 04:12] LABS: Basophils % 0.1 % (0.0-0.8); Eosinophils % 0.1 % (0.00-10.9); Hematocrit 26.9 VOL% (42.0-52.0); Hemoglobin 9.1 GM/DL (14.0-18.0); Immature Granulocytes Absolute 0.17 #; Lymphocytes # 0.8 10*3/uL (1.4-4.0); Lymphocytes % 4.4 % (21.2-54.2); Mean Corpuscular HGB Conc 33.8 GM/DL (32-36); Mean Corpuscular Hemoglobin 31 PG (27-34); Mean Corpuscular Volume 91.8 FL (87-102); Mean Platelet Volume 11.9 FL (9.6-12.0); Monocytes # 0.6 10*3/uL (0.11-0.8); Monocytes % 3.6 % (1.7-12.7); NRBC # 0.04 10*3/uL; Neutrophils # 15.5 10*3/uL (1.4-7.4); Neutrophils % 90.8 % (38.7-73.9); Platelet Count 161 T/CUMM (130-400); Red Blood Count 2.93 MC/CUMM (3.8-5.5); Red Cell Distribution Width 15.8 % (9.3-17.3)
[2016-10-19 04:50] LABS: Calcium 7.3 MG/DL (8.5-10.1); Magnesium 2.4 MG/DL (1.8-2.4); Osmolality,Calculated 291.8 MOS/KG (273-304); Potassium 3.9 MMOL/L (3.5-5.1)
[2016-10-19 04:53] LABS: Lymphocytes 2 % (20-55); Segmented Neutrophils 97 % (50-85); Total Cells Counted 100
[2016-10-19 04:54] LABS: Hypochromasia 1+; Ovalocytes Slight; Platelet Estimate Normal
--- NOTE | 2016-10-19 06:44 | XRay Report ---
Portable chest Date: 10/19/2016 Clinical history: Respiratory distress Comparison: 10/18/2016 Technique: Portable AP sitting chest Findings: Stable cardiomegaly and supportive devices. Progressive parenchymal findings especially at the left lung base with larger left pleural effusion. Increase shift of the mediastinum to the left with degenerative changes. Impression: Stable support devices. Progressive atelectasis/infiltration/edema especially at the left lung base with larger [id number] left pleural effusion. PROCEDURE INTERPRETED AT [facility] DEPARTMENT OF RADIOLOGY Final Report Signed by: Dr. Malena Gates
[2016-10-19] MEDS: INSULIN LISPRO 100 UNIT/ML SUBCUT SCH ×4 (07:30→21:16)
--- NOTE | 2016-10-19 08:13 | Nephrology Progress Note ---
Nephrology - PN: Subj Interval history: Patient is awake and looking about he remains intubated, he is asking about getting his restraints taken off. Physical exam general the patient is chronically ill-appearing, heart is regular rate and rhythm, he has no pitting edema, lungs are clear to auscultation anteriorly, abdomen is soft with positive bowel sounds Assessment/plan 1. End-stage renal disease-patient was dialyzed yesterday 2. Perirectal abscess-patient had reexploration and cleaning of this wound yesterday 3. Anemia-patient's hematocrit around 27% he is to get a another unit of blood , he had a fair amount of bleeding per nursing personnel after his second debridement 4. Respiratory failure-it sounds like this patient is going to get extubated today. Exam (PN)-Nephrology - Vital Signs Vital signs: Period Temp Pulse Resp BP Sys/Miller Pulse Ox Last 24 Hr 97.7 F-99.9 F 54-71 11-112 91-142/39-73 98-100 - Lab 10/19/16 04:00 10/19/16 04:00 Most recent lab results ABG pH 7.421 (7.35-7.45) 10/19/16 03:35 ABG pCO2 35.5 MM HG (35-48) 10/19/16 03:35 ABG pO2 104.0 MM HG (80-95) H 10/19/16 03:35 ABG HCO3 23.5 MMOL/L (20-26) 10/19/16 03:35 ABG O2 Saturation 95.2 % (95-100) 10/19/16 03:35 Calcium 7.3 MG/DL (8.5-10.1) L 10/19/16 04:00 Magnesium 2.4 MG/DL (1.8-2.4) 10/19/16 04:00 Assessment and Plan (1) Fever Status: Acute Current Visit: Yes (2) Hypotension Status: Acute Assessment and plan: Patient has responded well to Levophed, his CVP is 14 Current Visit: Yes (3) Cardiac arrest Status: Acute Assessment and plan: Patient developed bradycardia and hypotension and briefly required chest compressions intraoperatively Current Visit: Yes (4) ESRD (end stage renal disease) on dialysis Status: Acute Assessment and plan: We will plan on hemodialysis tomorrow Current Visit: Yes (5) Influenza Problem details: Tested positive for influenza A at the [facility] Continue Tamiflu, pharmacy to help dose Status: Acute Current Visit: Yes (6) On mechanically assisted ventilation Status: Acute Assessment and plan: Continue vent support Current Visit: Yes (7) Perirectal abscess Status: Acute Assessment and plan: We will continue IV antibiotics Current Visit: Yes
--- NOTE | 2016-10-19 08:16 | Pulmonology Progress Note ---
Pulmonary - PN: Subj Interval history: Patient is a 46-year-old that has end-stage renal disease on hemodialysis. He is a diabetic with multiple complications along with hypertension. He has a large perirectal abscess that was drained he was somewhat septic. He has been on the ventilator and is much more stable now. He did go back for debridement yesterday. Today he is alert and quite anxious. He does want the ventilator off. His vital signs have been stable. He had dialysis yesterday. He should do okay off the ventilator. Exam (Progress Note) - Constitutional Vitals: Period Temp Pulse Resp BP Sys/Miller Pulse Ox Last 24 Hr 97.7 F-99.9 F 54-71 11-112 91-142/39-73 98-100 Exam: General appearance: normal weight, other (Patient is awake and moving around and reasonably comfortable on the ventilator.) - Head Head exam: Present: normal inspection - Eye Eye exam: Present: EOMI. Absent: scleral icterus Pupils: Present: DINA - ENT ENT exam: Present: normal exam, other (ET tube in good position) - Neck Neck exam: Absent: lymphadenopathy, thyromegaly - Respiratory Respiratory exam: Present: clear to auscultation bilaterally. He is moving air fairly well. Absent: wheezes - Cardiovascular Cardiovascular exam: Present: regular rate and rhythm, tachycardia. Absent: gallop - GI/Abdominal GI/Abdominal exam: Present: hypoactive bowel sounds, soft. Absent: organomegaly , tenderness - Extremities Exam Extremities exam: Present: other (He has had multiple amputations of digits.). Absent: calf tenderness, edema - Neurological Exam Neurological exam: Present: other (Patient is awake and restless. ) - Skin Skin exam: Present: warm, dry Results - Labs CBC & BMP: 10/19/16 04:00 10/19/16 04:00 Labs: His PO2 is 104 with a PCO2 35 and a pH of 7.42 - Diagnostic Findings Procedure: Chest x-ray: image reviewed by me, report reviewed by me (Chest x- ray shows cardiomegaly with very mild left lower lobe infiltrate.) Assessment and Plan (1) Perirectal abscess Status: Acute Assessment and plan: The patient apparently has a large perirectal abscess that has been drained. He had further surgery yesterday. He is stable and will try to extubate. Current Visit: Yes (2) ESRD on hemodialysis Problem details: Dialyzes Tuesday No acute indication for dialysis We will consult nephrology if he require dialysis and patient, likely Tuesday Status: Chronic Assessment and plan: Patient is a dialysis patient and will be followed by renal. He did well with dialysis yesterday. Current Visit: Yes (3) PVD (peripheral vascular disease) Status: Acute Assessment and plan: The patient has diabetic peripheral vascular disease and has lost several digits Current Visit: Yes (4) Influenza Problem details: Tested positive for influenza A at the [facility] Continue Tamiflu, pharmacy to help dose Status: Acute Assessment and plan: Patient has a positive influenza titer and is on Tamiflu. Current Visit: Yes (5) Sepsis due to cellulitis Problem details: Space Dr. Bertrand has seen the patient, plans incision and debridement for source control, patient n.p.o. Given ESRD, and history of multiple recurrent abscesses, cover with broad- spectrum antibiotics including vancomycin to cover for MRSA and Zosyn to cover for gram-negative organisms to include Pseudomonas - will follow up intra-op deep cultures for organism- targeted therapy Pharmacy consult for antibiotic dosing in ESRD Hydrocodone for pain control Status: Acute Assessment and plan: The patient is much more stable and is off pressors now. Current Visit: Yes (6) Hypertension Problem details: Continue lisinopril, metoprolol, hold losartan Does not seem to be taking the nifedipine that I see on some medication lists Status: Chronic Assessment and plan: He has stable blood pressure now and is doing relatively well. Current Visit: Yes Qualifiers: Hypertension type: secondary to other renal disorders Qualified Code(s): I15.1 - Hypertension secondary to other renal disorders; N28.89 - Other specified disorders of kidney and ureter (7) Uncontrolled type 2 diabetes mellitus with hyperglycemia Problem details: Patient denies taking any medications at home, although I see that Levemir has been prescribed to him Perioperatively cover with low-dose sliding scale insulin, change to basal bolus as needed Status: Acute Assessment and plan: His glucose is 180 Current Visit: Yes (8) On mechanically assisted ventilation Status: Acute Assessment and plan: Patient is alert and doing fairly well and will try to extubate today. Current Visit: Yes (9) Obstructive lung disease Problem details: I am unclear on this history, however patient reports using nebulizers at home Ordered as needed nebulizer treatments Status: Acute Assessment and plan: The patient apparently is a smoker and uses nebulizer treatments at home Current Visit: Yes
[2016-10-19] MEDS ORDERED: VANCOMYCIN INJ 1,000 MG in SODIUM CHLORIDE 0.9% 250 ML IV ONE (09:00)
[2016-10-19] MEDS: LISINOPRIL 10 MG TABLET PO SCH (09:18)
[2016-10-19] MEDS: OSELTAMIVIR 30 MG CAPSULE PO SCH (09:18)
[2016-10-19] MEDS: METOPROLOL TARTRATE 50 MG TABLET PO SCH (09:19)
[2016-10-19] MEDS: PHENYLEPHRINE DRIP 40 MG/250 ML PREMIX IV SCH (09:27)
[2016-10-19] MEDS: PIPERACILLIN/TAZOBACTAM 3,375 MG in SODIUM CHLORIDE 0.9% 100 ML IV SCH ×2 (10:13→21:23)
--- NOTE | 2016-10-19 10:34 | Event Note ---
General Surgery Progress Note Chief complaint This patient is a 46-year-old man with renal failure on hemodialysis admitted with sepsis due to a perirectal abscess and also recently diagnosed with influenza A treated with incision and drainage of perirectal abscess on 2016 Interval history The patient remains intubated but he wakes up and follows commands. There is hope that he might be extubated today. He had some bleeding from his wound last night but has stopped. Physical exam The patient is afebrile with normal vital signs. The dressing was left in place because it is a hemostatic dressing and I just replaced it last night around 8 PM. It will be left until tomorrow. Labs Reviewed, white blood cell count down to 17,000 Hemoglobin is 9.1 Imaging Chest x-ray reviewed, and there is increased opacification in the right chest Assessment and plan We will continue wound care and antibiotics He probably will need further debridement but the wound will have to declare itself a little more and I think we have sepsis controlled surgically.
--- NOTE | 2016-10-19 11:00 | Hospitalist Progress Note ---
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 He appears to have on this occasion to have developed MRSA bacteremia associated with perirectal abscess. Current Visit: Yes Qualifiers: Site of cutaneous abscess: buttock Qualified Code(s): L02.31 - Cutaneous abscess of buttock (2) ESRD (end stage renal disease) on dialysis Status: Chronic Assessment and plan: Diabetes mellitus and hypertension Current Visit: Yes Hospitalist: Subjective Interval history: 46 yo male diabetic on chronic renal replacement therapy who was admitted with perirectal abscess and developed intra-operative hypotension during manipulation with possible sepsis syndrome on the . He had second surgery on the site on the with resolution of the SIRS and successful extubation earlier today. He is awake and alert this morning with stable vital signs. By report the patient was found to be reactive for influenza A at the [facility] prior to transfer other than fever did not show clinically evident syndromic features. Exam - Constitutional Vitals: Period Temp Pulse Resp BP Sys/Miller Pulse Ox Last 24 Hr 97.7 F-100.2 F 54-90 11-112 91-140/39-71 91-100 General appearance: no acute distress, over weight - Respiratory Respiratory exam: Present: clear to auscultation bilaterally. Absent: rales, rhonchi, wheezes - Cardiovascular Cardiovascular exam: Present: regular rate and rhythm - GI/Abdominal GI/Abdominal exam: Present: normal bowel sounds. Absent: tenderness - Extremities Exam Extremities exam: Absent: edema - Neurological Exam Neurological exam: Present: alert, oriented X3 Results - Labs CBC & BMP: 10/19/16 04:00 10/19/16 04:00 Labs: pH7.42 pCO2 36 pO2 104 prior to extubation - Diagnostic Findings Procedure: Chest x-ray: image reviewed by me (KRAUSE rotated with superimposition on the left lower lobe)
[2016-10-19] MEDS: HYDROmorphone 2 MG/1 ML VIAL IV PRN ×3 (11:15→20:26)
[2016-10-20] MEDS: HYDROmorphone 2 MG/1 ML VIAL IV PRN ×6 (02:29→22:42)
[2016-10-20 05:43] LABS: Basophils % 0.1 % (0.0-0.8); Eosinophils # 0.1 10*3/uL (0.0-0.87); Eosinophils % 0.8 % (0.00-10.9); Hematocrit 27.2 VOL% (42.0-52.0); Hemoglobin 8.9 GM/DL (14.0-18.0); Immature Granulocytes % 2.3 %; Immature Granulocytes Absolute 0.42 #; Lymphocytes # 1.1 10*3/uL (1.4-4.0); Mean Corpuscular HGB Conc 32.7 GM/DL (32-36); Mean Corpuscular Hemoglobin 30 PG (27-34); Mean Corpuscular Volume 91.9 FL (87-102); Mean Platelet Volume 11.7 FL (9.6-12.0); Monocytes % 5.4 % (1.7-12.7); NRBC # 0.03 10*3/uL; Neutrophils # 15.6 10*3/uL (1.4-7.4); Neutrophils % 85.4 % (38.7-73.9); Platelet Count 188 T/CUMM (130-400); Red Blood Count 2.96 MC/CUMM (3.8-5.5); Red Cell Distribution Width 15.7 % (9.3-17.3); White Blood Count 18.3 T/CUMM (4-12)
--- NOTE | 2016-10-20 06:14 | Pulmonology Progress Note ---
Pulmonary - PN: Subj Interval history: Patient is a 46-year-old that has end-stage renal disease on hemodialysis. He is a diabetic with multiple complications along with hypertension. He has a large perirectal abscess that was drained and he was somewhat septic. His wound has been drained and debrided and his sepsis treated. Yesterday he was extubated and has done fairly well. He says he is not short of breath and is able to cough okay. He feels much better today. His blood pressure and heart rate of been stable. He will probably dialyze today. He can likely move to a regular room soon. Exam (Progress Note) - Constitutional Vitals: Period Temp Pulse Resp BP Sys/Miller Pulse Ox Last 24 Hr 98.2 F-100.2 F 67-90 13-35 99-140/41-58 91-100 Exam: General appearance: normal weight, other (Patient is awake and alert and not having any respiratory distress. ) - Head Head exam: Present: normal inspection - Eye Eye exam: Present: EOMI. Absent: scleral icterus Pupils: Present: DINA - ENT ENT exam: Present: normal exam - Neck Neck exam: Absent: lymphadenopathy, thyromegaly - Respiratory Respiratory exam: Present: clear to auscultation bilaterally. He is moving air fairly well and he still has some minimal rhonchi. - Cardiovascular Cardiovascular exam: Present: regular rate and rhythm with no loud murmur or gallop. - GI/Abdominal GI/Abdominal exam: Present: hypoactive bowel sounds, soft. Absent: organomegaly , tenderness - Extremities Exam Extremities exam: Present: other (He has had multiple amputations of digits.). Absent: calf tenderness, edema - Neurological Exam Neurological exam: Present: other (Patient is alert and talking and moving everything okay.) - Skin Skin exam: Present: warm, dry Results - Labs CBC & BMP: 10/20/16 05:30 10/19/16 04:00 Assessment and Plan (1) Perirectal abscess Status: Acute Assessment and plan: The patient apparently has a large perirectal abscess that has been drained. His infection seems to be under better control and he is doing much better now. Current Visit: Yes (2) ESRD on hemodialysis Problem details: Dialyzes Tuesday No acute indication for dialysis We will consult nephrology if he require dialysis and patient, likely Tuesday Status: Chronic Assessment and plan: Patient is a dialysis patient and will be followed by renal. He will probably have dialysis today. Current Visit: Yes (3) PVD (peripheral vascular disease) Status: Acute Assessment and plan: The patient has diabetic peripheral vascular disease and has lost several digits Current Visit: Yes (4) Influenza Problem details: Tested positive for influenza A at the [facility] Continue Tamiflu, pharmacy to help dose Status: Acute Assessment and plan: Patient has a positive influenza titer and is on Tamiflu. Overall he says he feels much better. Current Visit: Yes (5) Sepsis due to cellulitis Problem details: Space Dr. Bertrand has seen the patient, plans incision and debridement for source control, patient n.p.o. Given ESRD, and history of multiple recurrent abscesses, cover with broad- spectrum antibiotics including vancomycin to cover for MRSA and Zosyn to cover for gram-negative organisms to include Pseudomonas - will follow up intra-op deep cultures for organism- targeted therapy Pharmacy consult for antibiotic dosing in ESRD Hydrocodone for pain control Status: Acute Assessment and plan: The patient is alert and comfortable and his blood pressures better. His infection is under much better control. Current Visit: Yes (6) Hypertension Problem details: Continue lisinopril, metoprolol, hold losartan Does not seem to be taking the nifedipine that I see on some medication lists Status: Chronic Assessment and plan: He has stable blood pressure now and is doing relatively well. Current Visit: Yes Qualifiers: Hypertension type: secondary to other renal disorders Qualified Code(s): I15.1 - Hypertension secondary to other renal disorders; N28.89 - Other specified disorders of kidney and ureter (7) Uncontrolled type 2 diabetes mellitus with hyperglycemia Problem details: Patient denies taking any medications at home, although I see that Levemir has been prescribed to him Perioperatively cover with low-dose sliding scale insulin, change to basal bolus as needed Status: Acute Assessment and plan: His glucose is 178 Current Visit: Yes (8) On mechanically assisted ventilation Status: Resolved Assessment and plan: Patient is doing well off the ventilator and should not have any more problems. Current Visit: No (9) Obstructive lung disease Problem details: I am unclear on this history, however patient reports using nebulizers at home Ordered as needed nebulizer treatments Status: Acute Assessment and plan: The patient apparently is a smoker and uses nebulizer treatments at home. He does not have any respiratory difficulties at present. Current Visit: Yes
[2016-10-20 06:36] LABS: Calcium 7.3 MG/DL (8.5-10.1); Osmolality,Calculated 295.7 MOS/KG (273-304); Potassium 4.3 MMOL/L (3.5-5.1)
[2016-10-20] MEDS: PROPOFOL 1,000 MG/100 ML BOTTLE IV SCH (06:43)
[2016-10-20] MEDS ORDERED: FAMOTIDINE 20 MG/2 ML VIAL IV ONE ×2 (07:22→07:30)
[2016-10-20] MEDS: SODIUM CHLORIDE 0.9% 250 ML IV SCH (08:26)
[2016-10-20] MEDS ORDERED: PROPOFOL 200 MG/20 ML VIAL IV ONE (08:36)
[2016-10-20] MEDS ORDERED: MORPHINE 10 MG/1 ML VIAL IV PRN (09:03)
[2016-10-20] MEDS ORDERED: ONDANSETRON 4 MG/2 ML VIAL IV PRN (09:03)
--- NOTE | 2016-10-20 09:12 | Operative Note ---
Date of procedure: 10/20/16 Pre-op diagnosis: Necrotizing soft tissue infection perirectal Post-op diagnosis: same Procedure: Preoperative diagnosis Necrotizing perirectal soft tissue infection Postoperative diagnosis Same Procedures performed 1. Rectal exam under anesthesia 2. Dressing change under anesthesia Findings There is no communication with the rectum the sphincter muscles appeared intact. The patient had good tone the sphincter muscles. There was minimal further necrotic tissue but it was right on the sphincter muscles and it seem that we have good control at this point so no further debridement was performed. Complications None apparent Specimen None Anesthesia Monitored anesthesia Blood loss None Indications Necrotizing perirectal soft tissue infection with need for repeat exam under anesthesia Description of procedure The patient was taken to the operating room and transferred to the operating table in the supine position. Monitored anesthesia was administered and he was placed in lithotomy after SCDs were applied. Perineum was prepped Betadine and draped sterilely. The patient was already receiving therapeutic antibiotics. The rectal exam was performed after timeout was done. There is no communication with the rectum and the patient was not under general anesthesia there is actually good sphincter tone on his exam under MAC. The necrotizing soft tissue infection had minimal residual necrotic tissue and it was right on the sphincter muscle complex of this was left alone with the help to withdraw treat dressing changes will clean it up some. The wound was extensively irrigated and packed with Dakin's wet-to-dry dressing. Postoperative plan Continue wound care and antibiotics No further plans for operative intervention Implants: dakins soaked kerlix roll Anesthesia: MAC Surgeon / Physician: Charles Bertrand Estimated blood loss: minimal Specimens: none sent Condition: stable Disposition: ICU Results - Labs CBC & BMP: 10/20/16 05:30 10/20/16 05:30 Discharge Plan - Discharge Medications No Action Metoprolol Tartrate [Metoprolol Tartrate] 50 mg PO DAILY Lisinopril [Lisinopril] 10 mg PO DAILY Losartan [Cozaar] 1 tablet PO DAILY - Follow Up or Referral - Forms/Instructions
[2016-10-20] MEDS ORDERED: LACTATED RINGERS 1,000 ML IV SCH (09:30)
[2016-10-20] MEDS: PIPERACILLIN/TAZOBACTAM 3,375 MG in SODIUM CHLORIDE 0.9% 100 ML IV SCH ×2 (10:37→22:42)
[2016-10-20] MEDS: OSELTAMIVIR 30 MG CAPSULE PO SCH (10:38)
--- NOTE | 2016-10-20 11:22 | Hospitalist Progress Note ---
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 He appears to have on this occasion to have developed non-MRSA bacteremia associated with perirectal abscess. Current Visit: Yes Qualifiers: Site of cutaneous abscess: buttock Qualified Code(s): L02.31 - Cutaneous abscess of buttock (2) ESRD (end stage renal disease) on dialysis Status: Chronic Assessment and plan: Diabetes mellitus and hypertension Current Visit: Yes Hospitalist: Subjective Interval history: 46 yo male diabetes on chronic renal replacement therapy, admitted with maryjane- rectal abscess. Developed intra-operative hypotension with manipulation with possible sepsis response during procedure October 17. He had second procedure performed the next day and was successfully extubated on the . Though he was reactive for influenza A course much more consistent with bacterial infection arising from his abscess. Amended cultures show Staph hominis and epidermidis on blood without evidence of MRSA. Wound in addition to GPC showed a broadly sensitive E coli. Today had dressing change under anesthesia showing favorable anatomy. Exam - Constitutional Vitals: Period Temp Pulse Resp BP Sys/Miller Pulse Ox Last 24 Hr 98.1 F-99.4 F 69-83 14-30 99-136/37-78 94-100 General appearance: over weight - Respiratory Respiratory exam: Present: clear to auscultation bilaterally. Absent: rales, rhonchi, wheezes - Cardiovascular Cardiovascular exam: Present: regular rate and rhythm - GI/Abdominal GI/Abdominal exam: Present: normal bowel sounds. Absent: tenderness - Extremities Exam Extremities exam: Absent: edema - Neurological Exam Neurological exam: Present: alert, oriented X3 Results - Labs CBC & BMP: 10/20/16 05:30 10/20/16 05:30
[2016-10-20] MEDS: INSULIN LISPRO 100 UNIT/ML SUBCUT SCH ×4 (11:27→21:51)
[2016-10-20] MEDS: PHENYLEPHRINE DRIP 40 MG/250 ML PREMIX IV SCH (12:53)
--- NOTE | 2016-10-20 13:06 | Dialysis Note ---
Dialysis Note - Dialysis Note Mr. Pandya is seen during his hemodialysis. Tolerating it well. He is alert and in no distress. Blood pressure stable
[2016-10-20] MEDS ORDERED: MIDAZOLAM 2 MG/2 ML VIAL ONE (13:32)
[2016-10-20] MEDS ORDERED: KETAMINE 500 MG/10 ML VIAL ONE (13:33)
--- NOTE | 2016-10-20 13:44 | Anesthesia ---
Anesthesia Post OP - Post Ansesthetic Evaluation Patient seen in post op: Yes Resp: other (oxygen nasal cannula) CV: within normal limits Mental: within normal limits Temp: within normal limits [id number]: within normal limits Nausea and Vomiting: within normal limits Pain: within normal limits
--- NOTE | 2016-10-20 14:51 | Nephrology Progress Note ---
Nephrology - PN: Subj Interval history: Patient complains of diarrhea, he is requesting a anti-diarrheal agent. Physical exam general patient is in no acute distress Assessment/plan 1. Perirectal abscess 2. Loose stools-I will defer to general surgery as to whether to give him something for diarrhea or not. 3. Hypertension is controlled 4. Diabetes mellitus this is controlled Exam (PN)-Nephrology - Vital Signs Vital signs: Period Temp Pulse Resp BP Sys/Miller Pulse Ox Last 24 Hr 98.1 F-99 F 69-99 15-30 99-156/37-78 92-100 - Lab 10/20/16 05:30 10/20/16 05:30 Most recent lab results ABG pH 7.421 (7.35-7.45) 10/19/16 03:35 ABG pCO2 35.5 MM HG (35-48) 10/19/16 03:35 ABG pO2 104.0 MM HG (80-95) H 10/19/16 03:35 ABG HCO3 23.5 MMOL/L (20-26) 10/19/16 03:35 ABG O2 Saturation 95.2 % (95-100) 10/19/16 03:35 Calcium 7.3 MG/DL (8.5-10.1) L 10/20/16 05:30 Magnesium 2.4 MG/DL (1.8-2.4) 10/19/16 04:00 Assessment and Plan (1) Fever Status: Acute Current Visit: Yes (2) Hypotension Status: Acute Assessment and plan: Patient has responded well to Levophed, his CVP is 14 Current Visit: Yes (3) Cardiac arrest Status: Acute Assessment and plan: Patient developed bradycardia and hypotension and briefly required chest compressions intraoperatively Current Visit: Yes (4) ESRD (end stage renal disease) on dialysis Status: Chronic Assessment and plan: We will plan on hemodialysis tomorrow Current Visit: Yes (5) Influenza Problem details: Tested positive for influenza A at the [facility] Continue Tamiflu, pharmacy to help dose Status: Acute Current Visit: Yes (6) On mechanically assisted ventilation Status: Resolved Assessment and plan: Continue vent support Current Visit: No (7) Perirectal abscess Status: Acute Assessment and plan: We will continue IV antibiotics Current Visit: Yes
[2016-10-20] MEDS: LISINOPRIL 10 MG TABLET PO SCH (15:47)
[2016-10-20] MEDS: METOPROLOL TARTRATE 50 MG TABLET PO SCH (15:47)
[2016-10-20] MEDS ORDERED: VANCOMYCIN INJ 1,000 MG in SODIUM CHLORIDE 0.9% 250 ML IV ONE (21:00)
[2016-10-21] MEDS: SODIUM CHLORIDE 0.9% 250 ML IV SCH ×2 (01:09→09:59)
[2016-10-21] MEDS: HYDROmorphone 2 MG/1 ML VIAL IV PRN ×3 (03:42→13:11)
--- NOTE | 2016-10-21 07:43 | Pulmonology Progress Note ---
Pulmonary - PN: Subj Interval history: Patient is a 46-year-old that has end-stage renal disease on hemodialysis. He is a diabetic with multiple complications along with hypertension. He has a large perirectal abscess that was drained and he was somewhat septic. His wound has been drained and debrided and his sepsis treated. He came off the ventilator okay although he will wheeze a little. He says he is coughing okay. He complains of diarrhea and has a huge perirectal abscess. He may need a diverting colostomy. He did okay with dialysis yesterday. Exam (Progress Note) - Constitutional Vitals: Period Temp Pulse Resp BP Sys/Miller Pulse Ox Last 24 Hr 98.1 F-99.1 F 69-99 12-24 89-156/37-78 82-100 Exam: General appearance: normal weight, other (Patient is talking and appears reasonably stable.) - Head Head exam: Present: normal inspection - Eye Eye exam: Present: EOMI. Absent: scleral icterus Pupils: Present: DINA - ENT ENT exam: Present: normal exam - Neck Neck exam: Absent: lymphadenopathy, thyromegaly - Respiratory Respiratory exam: Present: He has fair breath sounds bilaterally with some mild rhonchi. - Cardiovascular Cardiovascular exam: Present: regular rate and rhythm with no loud murmur or gallop. - GI/Abdominal GI/Abdominal exam: Present: hypoactive bowel sounds, soft. Absent: organomegaly , tenderness - Extremities Exam Extremities exam: Present: other (He has had multiple amputations of digits.). Absent: calf tenderness, edema - Neurological Exam Neurological exam: Present: other (Patient is moving around in does get anxious at times. ) - Skin Skin exam: Present: warm, dry Results - Labs CBC & BMP: 10/20/16 05:30 10/20/16 05:30 Assessment and Plan (1) Perirectal abscess Status: Acute Assessment and plan: The patient apparently has a large perirectal abscess that has been drained. His infection seems to be under better control and he is doing much better now. He will continue with wound care. Current Visit: Yes (2) ESRD on hemodialysis Problem details: Dialyzes Tuesday No acute indication for dialysis We will consult nephrology if he require dialysis and patient, likely Tuesday Status: Chronic Assessment and plan: Patient is a dialysis patient and will be followed by renal. He did okay with dialysis. Current Visit: Yes (3) PVD (peripheral vascular disease) Status: Acute Assessment and plan: The patient has diabetic peripheral vascular disease and has lost several digits Current Visit: Yes (4) Influenza Problem details: Tested positive for influenza A at the [facility] Continue Tamiflu, pharmacy to help dose Status: Acute Assessment and plan: Patient has a positive influenza titer and is on Tamiflu. Overall he says he feels much better. Current Visit: Yes (5) Sepsis due to cellulitis Problem details: Space Dr. Bertrand has seen the patient, plans incision and debridement for source control, patient n.p.o. Given ESRD, and history of multiple recurrent abscesses, cover with broad- spectrum antibiotics including vancomycin to cover for MRSA and Zosyn to cover for gram-negative organisms to include Pseudomonas - will follow up intra-op deep cultures for organism- targeted therapy Pharmacy consult for antibiotic dosing in ESRD Hydrocodone for pain control Status: Acute Assessment and plan: The patient is alert and comfortable and his blood pressures better. His infection is under much better control. He has stable hemodynamically now. Current Visit: Yes (6) Hypertension Problem details: Continue lisinopril, metoprolol, hold losartan Does not seem to be taking the nifedipine that I see on some medication lists Status: Chronic Assessment and plan: He has stable blood pressure now and is doing relatively well. Current Visit: Yes Qualifiers: Hypertension type: secondary to other renal disorders Qualified Code(s): I15.1 - Hypertension secondary to other renal disorders; N28.89 - Other specified disorders of kidney and ureter (7) Uncontrolled type 2 diabetes mellitus with hyperglycemia Problem details: Patient denies taking any medications at home, although I see that Levemir has been prescribed to him Perioperatively cover with low-dose sliding scale insulin, change to basal bolus as needed Status: Acute Assessment and plan: His glucose is 189 Current Visit: Yes (8) Obstructive lung disease Problem details: I am unclear on this history, however patient reports using nebulizers at home Ordered as needed nebulizer treatments Status: Acute Assessment and plan: The patient apparently is a smoker and uses nebulizer treatments at home. His O2 saturation drops a little and he will need more respiratory therapy. We will start nebulizer treatments regularly. Current Visit: Yes
[2016-10-21] MEDS: INSULIN LISPRO 100 UNIT/ML SUBCUT SCH ×3 (07:53→17:59)
--- NOTE | 2016-10-21 08:25 | Nephrology Progress Note ---
Nephrology - PN: Subj Interval history: Patient denies shortness of breath. Review of systems GI denies nausea vomiting Physical exam general the patient is in no acute distress Assessment/plan 1. End-stage renal disease-we will continue hemodialysis 2. Perirectal abscess-management per surgery, will continue antibiotics 3. Diabetes mellitus this is controlled 4. Hypotension-patient is off pressors is blood pressure is doing better. Patient is okay for the floor from my standpoint. Exam (PN)-Nephrology - Vital Signs Vital signs: Period Temp Pulse Resp BP Sys/Miller Pulse Ox Last 24 Hr 98.1 F-99.1 F 69-99 12- 89-156/37-78 82-100 - Lab 10/20/16 05:30 10/20/16 05:30 Most recent lab results ABG pH 7.421 (7.35-7.45) 10/19/16 03:35 ABG pCO2 35.5 MM HG (35-48) 10/19/16 03:35 ABG pO2 104.0 MM HG (80-95) H 10/19/16 03:35 ABG HCO3 23.5 MMOL/L (20-26) 10/19/16 03:35 ABG O2 Saturation 95.2 % (95-100) 10/19/16 03:35 Calcium 7.3 MG/DL (8.5-10.1) L 10/20/16 05:30 Magnesium 2.4 MG/DL (1.8-2.4) 10/19/16 04:00 Assessment and Plan (1) Fever Status: Acute Current Visit: Yes (2) Hypotension Status: Acute Assessment and plan: Patient has responded well to Levophed, his CVP is 14 Current Visit: Yes (3) Cardiac arrest Status: Acute Assessment and plan: Patient developed bradycardia and hypotension and briefly required chest compressions intraoperatively Current Visit: Yes (4) ESRD (end stage renal disease) on dialysis Status: Chronic Assessment and plan: We will plan on hemodialysis tomorrow Current Visit: Yes (5) Influenza Problem details: Tested positive for influenza A at the [facility] Continue Tamiflu, pharmacy to help dose Status: Acute Current Visit: Yes (6) On mechanically assisted ventilation Status: Resolved Assessment and plan: Continue vent support Current Visit: No (7) Perirectal abscess Status: Acute Assessment and plan: We will continue IV antibiotics Current Visit: Yes
[2016-10-21] MEDS ORDERED: LOPERAMIDE 2 MG CAPSULE PO PRN (08:49)
--- NOTE | 2016-10-21 08:51 | Event Note ---
General Surgery Progress Note Chief complaint This patient is a 46-year-old man with renal failure on hemodialysis admitted with sepsis due to a perirectal abscess and also recently diagnosed with influenza A treated with incision and drainage of perirectal abscess on 2016 with second-look excisional debridement on 10/18/2016 and repeat exam under anesthesia on 10/20/2016 Interval history No events overnight. Patient is having a lot of diarrhea that is contaminating his wound. He is afebrile. His labs are not back today. Cultures have returned. Physical exam The patient is afebrile with normal vital signs. The wound is very clean and does have some stool contamination but it is not very severe. Labs CBGs in the 200s Imaging None Assessment and plan Continue wound care and antibiotics Imodium for diarrhea The patient can be transferred to the floor from my standpoint if it is deemed appropriate by that his medical team.
[2016-10-21] MEDS: METOPROLOL TARTRATE 50 MG TABLET PO SCH (09:08)
[2016-10-21] MEDS: LISINOPRIL 10 MG TABLET PO SCH (09:08)
[2016-10-21] MEDS: OSELTAMIVIR 30 MG CAPSULE PO SCH (09:08)
[2016-10-21] MEDS: PIPERACILLIN/TAZOBACTAM 3,375 MG in SODIUM CHLORIDE 0.9% 100 ML IV SCH ×2 (09:55→22:55)
[2016-10-21] MEDS: PHENYLEPHRINE DRIP 40 MG/250 ML PREMIX IV SCH (09:59)
--- NOTE | 2016-10-21 10:19 | Hospitalist Progress Note ---
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 He appears to have on this occasion to have developed non-MRSA bacteremia associated with perirectal abscess. Current Visit: Yes Qualifiers: Site of cutaneous abscess: buttock Qualified Code(s): L02.31 - Cutaneous abscess of buttock (2) ESRD (end stage renal disease) on dialysis Status: Chronic Assessment and plan: Diabetes mellitus and hypertension Current Visit: Yes Hospitalist: Subjective Interval history: 46 yo male diabetic with end stage renal disease on chronic renal replacement therapy was admitted with maryjane-rectal abscess. He developed intra-operative hypotension during manipulation with sepsis response October 17. The next day he had completion of drainage procedure and was hemodynamically stable subsequently and successfully extubated on the . On the he had dressing change under anesthesia with good anatomic result. Wound culture showed GPC and broadly sensitive E coli. Blood cultures positive for Staph hominis and epidermidis. He continues stable and afebrile with local site pain. He was serologically positive for influenza A prior to transfer, however course has been much more that of a bacterial infection. Exam - Constitutional Vitals: Period Temp Pulse Resp BP Sys/Miller Pulse Ox Last 24 Hr 99 F-99.1 F 70-99 12-24 89-156/41-78 82-98 General appearance: over weight - Respiratory Respiratory exam: Present: clear to auscultation bilaterally. Absent: rales, rhonchi, wheezes - Cardiovascular Cardiovascular exam: Present: regular rate and rhythm - GI/Abdominal GI/Abdominal exam: Present: normal bowel sounds. Absent: tenderness - Extremities Exam Extremities exam: Absent: edema - Neurological Exam Neurological exam: Present: alert, oriented X3 Results - Labs CBC & BMP: 10/20/16 05:30 10/20/16 05:30
[2016-10-21] MEDS ORDERED: ALBUTEROL/IPRATROPIUM 3 ML NEB RESP TX SCH (13:00)
[2016-10-21] MEDS ORDERED: MORPHINE 2 MG/1 ML SYRINGE IV PRN (15:14)
[2016-10-21] MEDS: oxyCODONE/ACETAMINOPHEN 5-325 MG TABLET PO PRN (18:20)
[2016-10-22] MEDS: INSULIN LISPRO 100 UNIT/ML SUBCUT SCH ×4 (00:04→15:39)
[2016-10-22] MEDS: oxyCODONE/ACETAMINOPHEN 5-325 MG TABLET PO PRN ×2 (06:36→13:09)
[2016-10-22 06:57] LABS: Basophils % 0.2 % (0.0-0.8); Eosinophils # 0.4 10*3/uL (0.0-0.87); Eosinophils % 3.2 % (0.00-10.9); Hematocrit 28.3 VOL% (42.0-52.0); Immature Granulocytes % 7.4 %; Immature Granulocytes Absolute 0.94 #; Mean Corpuscular HGB Conc 31.8 GM/DL (32-36); Mean Corpuscular Hemoglobin 30 PG (27-34); Mean Platelet Volume 11.2 FL (9.6-12.0); Monocytes # 1.6 10*3/uL (0.11-0.8); Monocytes % 12.9 % (1.7-12.7); NRBC # 0.02 10*3/uL; Neutrophils # 8.7 10*3/uL (1.4-7.4); Neutrophils % 68.3 % (38.7-73.9); Platelet Count 315 T/CUMM (130-400); Red Blood Count 3.01 MC/CUMM (3.8-5.5); Red Cell Distribution Width 15.3 % (9.3-17.3); White Blood Count 12.7 T/CUMM (4-12)
[2016-10-22 07:24] LABS: Band Neutrophils 3 % (0-10); Eosinophils 2 % (0-10); Lymphocytes 7 % (20-55); Segmented Neutrophils 83 % (50-85); Total Cells Counted 100
[2016-10-22 07:25] LABS: Hypochromasia 1+; Platelet Estimate Adequate
[2016-10-22 07:35] LABS: Calcium 7.7 MG/DL (8.5-10.1); Magnesium 2.6 MG/DL (1.8-2.4); Osmolality,Calculated 293.5 MOS/KG (273-304); Potassium 4.3 MMOL/L (3.5-5.1)
--- NOTE | 2016-10-22 07:41 | Event Note ---
General Surgery Progress Note Chief complaint This patient is a 46-year-old man with renal failure on hemodialysis admitted with sepsis due to a perirectal abscess and also recently diagnosed with influenza A treated with incision and drainage of perirectal abscess on 2016 with second-look excisional debridement on 10/18/2016 and repeat exam under anesthesia on 10/20/2016 Interval history Patient is doing well on the floor today. He is having a lot of diarrhea despite Imodium initiation. C. difficile has not been checked. White blood cell count is improving to 12,700 today. The patient pulled out his central line and is packing recently. Physical exam The patient is afebrile with normal vital signs. The packing is out of the wound and there is some stool in the wound. The diarrhea has firmed up some. Labs Reviewed, as above Imaging None Assessment and plan Continue antibiotics and wound care Continue Imodium for diarrhea Check C. difficile I do not think the patient needs fecal diversion at this time. We will see how his wound does over the weekend and he may need to have it done if the contamination becomes too difficult to control with medical constipation.
[2016-10-22] MEDS ORDERED: VANCOMYCIN INJ 750 MG in SODIUM CHLORIDE 0.9% 250 ML IV PRN (07:57)
--- NOTE | 2016-10-22 09:02 | Dialysis Note ---
Dialysis Note - Dialysis Note Mr. Pandya is seen during his hemodialysis. He is resting and is stable with stable hemodynamics
--- NOTE | 2016-10-22 09:14 | Pulmonology Progress Note ---
Pulmonary - PN: Subj Interval history: Patient is a 46-year-old that has end-stage renal disease on hemodialysis. He is a diabetic with multiple complications along with hypertension. He has a large perirectal abscess that was drained and he was somewhat septic. His wound has been drained and debrided and his sepsis treated. He came off the ventilator okay although he will wheeze a little. He says he is coughing okay. He complains of diarrhea and has a huge perirectal abscess. He may need a diverting colostomy. Last night he said he slept fairly well. He is not having any increased trouble breathing. He is tolerating his breathing treatments. He is going for dialysis today. He does have a large perirectal abscess. Exam (Progress Note) - Constitutional Vitals: Period Temp Pulse Resp BP Sys/Miller Pulse Ox Last 24 Hr 97.7 F-98.5 F 63-75 2-22 111-177/52-84 89-97 Exam: General appearance: normal weight, other (he is resting comfortably in bed and not having any distress. ) - Head Head exam: Present: normal inspection - Eye Eye exam: Present: EOMI. Absent: scleral icterus Pupils: Present: DINA - ENT ENT exam: Present: normal exam - Neck Neck exam: Absent: lymphadenopathy, thyromegaly - Respiratory Respiratory exam: Present: He has fair breath sounds bilaterally but his lungs sound better today with less rhonchi. - Cardiovascular Cardiovascular exam: Present: regular rate and rhythm with no loud murmur or gallop. - GI/Abdominal GI/Abdominal exam: Present: hypoactive bowel sounds, soft. Absent: organomegaly , tenderness - Extremities Exam Extremities exam: Present: other (He has had multiple amputations of digits.). Absent: calf tenderness, edema - Neurological Exam Neurological exam: Present: other (Patient is alert and seems to be moving around okay. ) - Skin Skin exam: Present: warm, dry Results - Labs CBC & BMP: 10/22/16 05:44 10/22/16 05:44 Assessment and Plan (1) Perirectal abscess Status: Acute Assessment and plan: The patient apparently has a large perirectal abscess that has been drained. His infection seems to be under better control and he is doing much better now. He will continue with wound care. He has multiple organisms on his culture. Current Visit: Yes (2) ESRD on hemodialysis Problem details: Dialyzes Tuesday No acute indication for dialysis We will consult nephrology if he require dialysis and patient, likely Tuesday Status: Chronic Assessment and plan: Patient is a dialysis patient and is getting dialysis today. Current Visit: Yes (3) PVD (peripheral vascular disease) Status: Acute Assessment and plan: The patient has diabetic peripheral vascular disease and has lost several digits Current Visit: Yes (4) Influenza Problem details: Tested positive for influenza A at the [facility] Continue Tamiflu, pharmacy to help dose Status: Acute Assessment and plan: Patient has a positive influenza titer and is on Tamiflu. Overall he says he feels much better. Current Visit: Yes (5) Sepsis due to cellulitis Problem details: Space Dr. Bertrand has seen the patient, plans incision and debridement for source control, patient n.p.o. Given ESRD, and history of multiple recurrent abscesses, cover with broad- spectrum antibiotics including vancomycin to cover for MRSA and Zosyn to cover for gram-negative organisms to include Pseudomonas - will follow up intra-op deep cultures for organism- targeted therapy Pharmacy consult for antibiotic dosing in ESRD Hydrocodone for pain control Status: Acute Assessment and plan: The patient is alert and comfortable and his blood pressures better. His infection is under much better control. He has stable hemodynamically now. Current Visit: Yes (6) Hypertension Problem details: Continue lisinopril, metoprolol, hold losartan Does not seem to be taking the nifedipine that I see on some medication lists Status: Chronic Assessment and plan: He has stable blood pressure now and is doing relatively well. Current Visit: Yes Qualifiers: Hypertension type: secondary to other renal disorders Qualified Code(s): I15.1 - Hypertension secondary to other renal disorders; N28.89 - Other specified disorders of kidney and ureter (7) Uncontrolled type 2 diabetes mellitus with hyperglycemia Problem details: Patient denies taking any medications at home, although I see that Levemir has been prescribed to him Perioperatively cover with low-dose sliding scale insulin, change to basal bolus as needed Status: Acute Assessment and plan: His glucose is 105 Current Visit: Yes (8) Obstructive lung disease Problem details: I am unclear on this history, however patient reports using nebulizers at home Ordered as needed nebulizer treatments Status: Acute Assessment and plan: The patient apparently is a smoker and uses nebulizer treatments at home. He says he is breathing better and his lungs are clear today. I will continue with respiratory therapy. Current Visit: Yes
--- NOTE | 2016-10-22 10:43 | Nephrology Progress Note ---
Nephrology - PN: Subj Interval history: Patient denies shortness of breath. Review of systems GI he denies nausea or vomiting Physical exam general the patient is chronically ill-appearing, he is in no acute distress Assessment/plan 1. End-stage renal disease-we will continue hemodialysis support patient is seen on dialysis presently and tolerating it well 2. Diabetes mellitus this is controlled 3. Perirectal abscess-patient status post I&D of this abscess and is receiving antibiotics presently 4. Anemia-patient's hematocrit stable around 28% Exam (PN)-Nephrology - Vital Signs Vital signs: Period Temp Pulse Resp BP Sys/Miller Pulse Ox Last 24 Hr 97.5 F-98.5 F 58-75 2-22 111-177/52-84 89-100 - Lab 10/22/16 05:44 10/22/16 05:44 Most recent lab results ABG pH 7.421 (7.35-7.45) 10/19/16 03:35 ABG pCO2 35.5 MM HG (35-48) 10/19/16 03:35 ABG pO2 104.0 MM HG (80-95) H 10/19/16 03:35 ABG HCO3 23.5 MMOL/L (20-26) 10/19/16 03:35 ABG O2 Saturation 95.2 % (95-100) 10/19/16 03:35 Calcium 7.7 MG/DL (8.5-10.1) L 10/22/16 05:44 Magnesium 2.6 MG/DL (1.8-2.4) H 10/22/16 05:44 Assessment and Plan (1) Fever Status: Acute Current Visit: Yes (2) Hypotension Status: Acute Assessment and plan: Patient has responded well to Levophed, his CVP is 14 Current Visit: Yes (3) Cardiac arrest Status: Acute Assessment and plan: Patient developed bradycardia and hypotension and briefly required chest compressions intraoperatively Current Visit: Yes (4) ESRD (end stage renal disease) on dialysis Status: Chronic Assessment and plan: We will plan on hemodialysis tomorrow Current Visit: Yes (5) Influenza Problem details: Tested positive for influenza A at the [facility] Continue Tamiflu, pharmacy to help dose Status: Acute Current Visit: Yes (6) On mechanically assisted ventilation Status: Resolved Assessment and plan: Continue vent support Current Visit: No (7) Perirectal abscess Status: Acute Assessment and plan: We will continue IV antibiotics Current Visit: Yes
--- NOTE | 2016-10-22 10:59 | Hospitalist Progress Note ---
Assessment and Plan (1) Perirectal abscess Status: Acute Assessment and plan: Continue IV antibiotics. Consult interventional radiology for central line placement for continued antibiotics. Consult LTAC Current Visit: Yes (2) ESRD on hemodialysis Problem details: Dialyzes Tuesday Status: Chronic Current Visit: Yes (3) PVD (peripheral vascular disease) Status: Chronic Current Visit: Yes (4) Hypertension Problem details: Continue lisinopril, metoprolol, hold losartan Does not seem to be taking the nifedipine that I see on some medication lists Status: Chronic Current Visit: Yes Qualifiers: Hypertension type: secondary to other renal disorders Qualified Code(s): I15.1 - Hypertension secondary to other renal disorders; N28.89 - Other specified disorders of kidney and ureter (5) Uncontrolled type 2 diabetes mellitus with hyperglycemia Problem details: Patient denies taking any medications at home, although I see that Levemir has been prescribed to him Perioperatively cover with low-dose sliding scale insulin, change to basal bolus as needed Status: Chronic Current Visit: Yes Qualifiers: Diabetes mellitus residential insulin use: with tank terminal gauger use Qualified Code( s): E11.65 - Type 2 diabetes mellitus with hyperglycemia; 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 He developed intra-operative hypotension during manipulation with sepsis response October 17. The next day he had completion of drainage procedure and was hemodynamically stable subsequently and successfully extubated on the . On the he had dressing change under anesthesia with good anatomic result. Wound culture showed GPC and broadly sensitive E coli. Blood cultures positive for Staph hominis and epidermidis. He continues stable and afebrile with local site pain. He was serologic positive for influenza A prior to transfer, however course has been much more that of a bacterial infection. Patient seen and examined. He pulled out his central line yesterday. I saw him during dialysis. No complaints at this time. planning for LTAC referral for continued IV abx. Exam - Constitutional Vitals: Period Temp Pulse Resp BP Sys/Miller Pulse Ox Last 24 Hr 97.5 F-98.5 F 58-75 2-22 111-177/52-84 89-100 General appearance: no acute distress Exam: Constitutional System: No distress. No tremulousness. Head: Normocephalic, atraumatic. Ears, Nose and Throat System: No pain or tenderness. No epistaxis or discharge Eyes System: Pupils equal, round, and reactive. Extraocular muscles intact. Neck: Supple, without adenopathy, No jugular venous distention. No thyromegaly, neck mass, or prior surgery apparent. Respiratory System: Chest clear to auscultation. Cardiovascular System: Heart with regular rate and rhythm. No murmur. GI System: Abdomen soft, nontender. Normo active bowel sounds present. Musculoskeletal System: limbs with no pedal edema. Full distal pulses. Neurological System: No discernable sensory deficit. No aphasia Psychiatric System: Conversation is rational Perirectal wound noted Results - Labs CBC & BMP: 10/22/16 05:44 10/22/16 05:44 Lab Results: I have reviewed the past 24 hour labs
--- NOTE | 2016-10-22 12:01 | Discharge Summary ---
Hospital Course - Hospital Course Hospital Course: 46 yo male diabetic with end stage renal disease on chronic renal replacement therapy was admitted with maryjane-rectal abscess. He developed intra-operative hypotension during manipulation with sepsis response October 17. The next day he had completion of drainage procedure and was hemodynamically stable subsequently and successfully extubated on the . On the he had dressing change under anesthesia with good anatomic result. Wound culture showed GPC and broadly sensitive E coli. Blood cultures positive for Staph hominis and epidermidis. He continues stable and afebrile with local site pain. He was serologic positive for influenza A prior to transfer, however course has been much more that of a bacterial infection. He is currently receiving vancomycin and zosyn. Dr. Bertrand is his surgeon. - Time spent with patient Time with patient DS: Greater than 30 minutes (Total discharge time for this patient, including [id number] time, clinical documentation, medication reconciliation, and discharge planning was 37 minutes.) Diagnosis - Discharge Diagnosis (1) Perirectal abscess Status: Acute (2) ESRD on hemodialysis Status: Chronic (3) PVD (peripheral vascular disease) Status: Chronic (4) Hypertension Status: Chronic (5) Uncontrolled type 2 diabetes mellitus with hyperglycemia Status: Chronic Discharge Plan - Discharge Data Disposition: Disch/Xfer-Ip Rehab Fac Condition at Discharge: Stable Discharge Diet: advance to your usual diet Activity: resume usual activities as tolerated Contact your physician if you experience:: fever over 101, Shortness of breath, Bleeding - Discharge Medications New Albuterol/Ipratropium Neb [Duoneb] 3 ml RESP TX RT Q4H PRN #0 PRN Reason: Shortness Of Breath/Wheezing Insulin Lispro [HumaLOG] See Protocol SUBCUT ACHS unit Lisinopril [Prinivil] 10 mg PO DAILY tablet Loperamide Cap [Imodium Cap] 2 mg PO Q2H PRN #0 capsule PRN Reason: Diarrhea Morphine Inj 4 mg IV Q3H PRN #0 syringe PRN Reason: Pain Severe (8-10) Oseltamivir Cap (CrCl <60) [Tamiflu Cap] 30 mg PO DAILY capsule Piperacillin/Tazobactam [Zosyn] 3,375 mg IV Q12H vial Vancomycin Inj 750 mg IV PRN PRN #0 vial PRN Reason: PHARMACY MANAGING oxyCODONE/ACETAMINOPHEN 5-325 [Percocet 5-325] 2 tablet PO Q4H PRN #0 tablet PRN Reason: Pain Moderate (4-7) Metoprolol Tartrate Tab [Lopressor Tab] 50 mg PO DAILY tablet Vancomycin Inj 1,000 mg IV PRN PRN #0 vial PRN Reason: PHARMACY MANAGING Discontinued Metoprolol Tartrate [Metoprolol Tartrate] 50 mg PO DAILY Lisinopril [Lisinopril] 10 mg PO DAILY Losartan [Cozaar] 1 tablet PO DAILY - Follow Up or Referral Follow Up: Charles Bertrand MD [Physician] - - Forms/Instructions Exam - Constitutional Vitals: Period Temp Pulse Resp BP Sys/Miller Pulse Ox Last 24 Hr 97.5 F-98.5 F 58-75 2-22 111-177/52-84 89-100 Discharge Results Procedures and tests throughout hospitalization: Pending Orders 10/17/16 06:27 Abscess Culture Routine Anaerobic Culture Routine 10/22/16 10:00 Consult to Interventional Rad Routine Labs on day of discharge: Labs from last 24 hours 10/22/16 10/22/16 10/22/16 10:52 08:44 05:44 WBC RBC Hgb Hct MCV MCH MCHC RDW Plt Count MPV Neut % (Auto) Lymph % (Auto) Clay % (Auto) Eos % (Auto) Baso % (Auto) Neut # (Auto) Lymph # (Auto) Clay # (Auto) Eos # (Auto) Baso # (Auto) Total Counted Immature Gran % Nucleated RBC % Immature Gran # Segmented Neutrophils Band Neutrophils Lymphocytes Monocytes Eosinophils Nucleated RBCs # Platelet Estimate Hypochromasia Sodium Potassium Chloride Carbon Dioxide Anion Gap BUN Creatinine GFR Calculation BUN/Creatinine Ratio Glucose POC Glucose 97 105 Calculated Osmolality Calcium Magnesium Random Vancomycin 28.7 10/22/16 10/22/16 10/21/16 05:44 05:44 19:59 WBC 12.7 H D RBC 3.01 L Hgb 9.0 L Hct 28.3 L MCV 94.0 MCH 30 MCHC 31.8 L RDW 15.3 Plt Count 315 D MPV 11.2 Neut % (Auto) 68.3 Lymph % (Auto) 8.0 L Clay % (Auto) 12.9 H Eos % (Auto) 3.2 Baso % (Auto) 0.2 Neut # (Auto) 8.7 H Lymph # (Auto) 1.0 L Clay # (Auto) 1.6 H Eos # (Auto) 0.4 Baso # (Auto) 0.0 Total Counted 100 Immature Gran % 7.4 Nucleated RBC % 0.2 Immature Gran # 0.94 Segmented Neutrophils 83 Band Neutrophils 3 Lymphocytes 7 L Monocytes 5 Eosinophils 2 Nucleated RBCs # 0.02 Platelet Estimate Adequate Hypochromasia 1+ Sodium 139 Potassium 4.3 Chloride 98 Carbon Dioxide 21 Anion Gap 24.3 H BUN 58 H Creatinine 10.10 H GFR Calculation 6 BUN/Creatinine Ratio 5.00 L Glucose 113 H POC Glucose 198 H Calculated Osmolality 293.5 Calcium 7.7 L Magnesium 2.6 H Random Vancomycin 10/21/16 15:36 WBC RBC Hgb Hct MCV MCH MCHC RDW Plt Count MPV Neut % (Auto) Lymph % (Auto) Clay % (Auto) Eos % (Auto) Baso % (Auto) Neut # (Auto) Lymph # (Auto) Clay # (Auto) Eos # (Auto) Baso # (Auto) Total Counted Immature Gran % Nucleated RBC % Immature Gran # Segmented Neutrophils Band Neutrophils Lymphocytes Monocytes Eosinophils Nucleated RBCs # Platelet Estimate Hypochromasia Sodium Potassium Chloride Carbon Dioxide Anion Gap BUN Creatinine GFR Calculation BUN/Creatinine Ratio Glucose POC Glucose 152 H Calculated Osmolality Calcium Magnesium Random Vancomycin Preliminary micro results at discharge 10/17/16 06:27 Abscess Culture - Preliminary Rectum Escherichia coli Staphylococcus epidermidis MRS Streptococcus anginosus group Microstrep plus panel 1 DS: Provider Date of admission: 10/17/16 01:36 Primary care physician: Faina Garner MD Attending physician on admission: Nicholas Ayala MD Consults: 10/17/16 02:39 Consult to Pharmacy [CONS] Routine Reason for Pharmacy Consult: Adjust Meds Renal Funct 10/17/16 06:43 Consult to Physician [CONS] Routine Comment: Consulting Provider: Kain Burleson Consult to Specialist Group: Pulmonology When should Consulting Provider be notified: Now Person Notified: dr burleson Date Notified: 10/17/16 Time Notified: 07:15 Consult Notification Comment: notified of consult Consult to Physician [CONS] Routine Comment: Consulting Provider: Manoj Palmer Consult to Specialist Group: Nephrology When should Consulting Provider be notified: Now Person Notified: dr palmer Date Notified: 10/17/16 Time Notified: 07:30 Consult Notification Comment: notified of consult 10/17/16 07:01 Consult to Physician [CONS] Routine Comment: Post op vent/ ?Sepsis/Rajendra episode/Flu + Consulting Provider: Kain Burleson 10/17/16 09:10 Consult to Physician [CONS] Routine Comment: Consulting Provider: Charles Bertrand Consult to Specialist Group: Surgery 10/18/16 07:42 Consult to Anesthesiology [CONS] Routine Consulting Provider: Reason for Anesthesiology: Pre-op Clearance 10/19/16 21:22 Consult to Anesthesiology [CONS] Routine Consulting Provider: Reason for Anesthesiology: Pre-op Clearance 10/21/16 23:15 Consult to Case Mgmt/Social Srvs [CONS] Routine Reason for Case Mgmt/Social Srvs: LTAC Consult Comment: IV abx, sepsis Discharging clinician: Cali Hernández MD Expected date of discharge: 10/22/16
[2016-10-22] MEDS: LISINOPRIL 10 MG TABLET PO SCH (12:47)
[2016-10-22] MEDS: OSELTAMIVIR 30 MG CAPSULE PO SCH (12:47)
[2016-10-22] MEDS: METOPROLOL TARTRATE 50 MG TABLET PO SCH (12:47)
[2016-10-22] MEDS: PIPERACILLIN/TAZOBACTAM 3,375 MG in SODIUM CHLORIDE 0.9% 100 ML IV SCH (13:10)
--- NOTE | 2016-10-22 14:45 | Post Interventional Procedure ---
Pre-op diagnosis: Lack of IV access Post-op diagnosis: same Procedure: Fluoroscopic guided placement of left IJ central line. Ultrasound vascular guidance Flouroscopy: 0.3 minutes Radiologist: Sallie Garner Transcript Evaluator: Vj León Anesthesia: local Specimens: none sent Estimated blood loss: none Complications: none Condition: stable Description/Findings: A formal timeout was performed. Maximum sterile barrier technique was used. Sonographic evaluation of the left neck demonstrates patent and compressible internal jugular vein. The neck was prepped and draped in sterile fashion. 3 cc 1% lidocaine was administered subcutaneously. Under sonographic guidance, a micropuncture needle was advanced into the vein. A captured sonographic image documents the position of the needle. Needle was exchanged over a wire for a vascular dilator. The position of the catheter was confirmed with fluoroscopic guidance and an image stored in PACS. The wire was removed. All 3 ports of the central line were aspirated and flushed with heparinized saline. The device was secured with suture, and a sterile dressing applied. Fluoroscopy: 0.3 minutes. Fluoroscopic images archived and captured: 1 Impression: Central ready for immediate use. Routine catheter care. Assessment and Plan - Time spent with patient Time spent with patient: Less than 30 minutes Time spent discussing smoking cessation with patient: 3 to 10 minutes
--- NOTE | 2016-10-22 14:49 | Interventional Radiology Rpt ---
History: Lack of IV access Date: 10/22/2016 Study: Fluoroscopic guided placement of left IJ central line. Ultrasound vascular guidance Comparison exam: Not applicable A formal timeout was performed. Maximum sterile barrier technique was used. Sonographic evaluation of the left neck demonstrates patent and compressible internal jugular vein. The neck was prepped and draped in sterile fashion. 3 cc 1% lidocaine was administered subcutaneously. Under sonographic guidance, a micropuncture needle was advanced into the vein. A captured sonographic image documents the position of the needle. Needle was exchanged over a wire for a vascular dilator. The position of the catheter was confirmed with fluoroscopic guidance and an image stored in PACS. The wire was removed. All 3 ports of the central line were aspirated and flushed with heparinized saline. The device was secured with suture, and a sterile dressing applied. Fluoroscopy: 0.3 minutes. Fluoroscopic images archived and captured: 1 Impression: Central ready for immediate use. Routine catheter care. PROCEDURE INTERPRETED AT [facility] DEPARTMENT OF RADIOLOGY Final Report Signed by: Dr. Sallie Garner
[2016-10-22 16:34] VITALS: BP 152/78
[2016-10-22] MEDS ORDERED: VANCOMYCIN INJ 750 MG in SODIUM CHLORIDE 0.9% 250 ML IV ONE (21:00)
== END 2016-10-22 18:35 | DRG 853 ==
LOC: EDBD → EDUNIT# → N.ED 22:54 → N.EDINP 10-17 01:36 → SUATTDRO 10-17 01:36 → N.3E 10-17 02:32 → N.ICU 10-17 07:45 → N.2E 10-21 15:02
PROVIDERS: ADMIT Internal Medicine; ATTEND Family Medicine

== ENCOUNTER 2017-07-01 12:28 | Inpatient (IN) ==
[2017-07-01] MEDS ORDERED: VANCOMYCIN INJ 1,000 MG in SODIUM CHLORIDE 0.9% 250 ML IV STA ×2 (15:03→16:26)
[2017-07-01 15:17] LABS: Basophils % 0.3 % (0.0-0.8); Eosinophils # 0.1 10*3/uL (0.0-0.87); Eosinophils % 0.8 % (0.00-10.9); Immature Granulocytes % 0.6 %; Immature Granulocytes Absolute 0.06 #; Lymphocytes # 0.8 10*3/uL (1.4-4.0); Lymphocytes % 6.9 % (21.2-54.2); Mean Corpuscular HGB Conc 33.3 GM/DL (32-36); Mean Corpuscular Hemoglobin 30 PG (27-34); Mean Corpuscular Volume 90.5 FL (87-102); Mean Platelet Volume 10.5 FL (9.6-12.0); Monocytes % 8.8 % (1.7-12.7); NRBC # 0.02 10*3/uL; Neutrophils % 82.6 % (38.7-73.9); Platelet Count 268 T/CUMM (130-400); Red Blood Count 3.98 MC/CUMM (3.8-5.5); Red Cell Distribution Width 18.1 % (9.3-17.3); White Blood Count 10.9 T/CUMM (4-12)
[2017-07-01] MEDS ORDERED: HYDROmorphone 2 MG/1 ML VIAL IV STA (15:23)
[2017-07-01] MEDS ORDERED: GENTAMICIN INJ 100 MG in SODIUM CHLORIDE 0.9% 100 ML IV STA (15:27)
[2017-07-01] MEDS ORDERED: NICOTINE 21 MG/24 HR PATCH TRANSDERM PRN (15:32)
[2017-07-01] MEDS ORDERED: ONDANSETRON 4 MG/2 ML VIAL IV PRN (15:32)
[2017-07-01] MEDS ORDERED: GLUCAGON 1 MG VIAL IM PRN ×2 (15:32→20:53)
[2017-07-01] MEDS ORDERED: guaiFENesin/DM ER 600-30 MG TABLET PO PRN (15:32)
[2017-07-01] MEDS ORDERED: DOCUSATE SODIUM 100 MG CAPSULE PO PRN (15:32)
[2017-07-01] MEDS ORDERED: DEXTROSE 50% 25 GM/50 ML VIAL IV PRN ×2 (15:32→20:53)
[2017-07-01] MEDS ORDERED: ACETAMINOPHEN 325 MG TABLET PO PRN ×2 (15:32→20:53)
[2017-07-01] MEDS ORDERED: traZODone 50 MG TABLET PO PRN (15:32)
[2017-07-01] MEDS ORDERED: HYDROmorphone 2 MG/1 ML VIAL ONE (15:33)
[2017-07-01 15:34] LABS: Calcium 7.6 MG/DL (8.5-10.1); Osmolality,Calculated 281.2 MOS/KG (273-304); Potassium 3.4 MMOL/L (3.5-5.1)
[2017-07-01] MEDS ORDERED: PERMETHRIN 5% CREAM 60 GM TUBE TOP ONE (15:45)
[2017-07-01] MEDS ORDERED: PANTOPRAZOLE 40 MG TABLET PO SCH (16:00)
[2017-07-01] MEDS ORDERED: GENTAMICIN INJ 100 MG in PREMIX 1 EACH IV STA (16:26)
[2017-07-01] MEDS ORDERED: INSULIN LISPRO 100 UNIT/ML SUBCUT SCH (17:00)
[2017-07-01] MEDS ORDERED: cloNIDine 0.1 MG TABLET PO PRN (17:28)
[2017-07-01] MEDS ORDERED: MORPHINE 2 MG/1 ML SYRINGE IV PRN (20:53)
[2017-07-01] MEDS ORDERED: ALBUTEROL/IPRATROPIUM 3 ML NEB RESP TX PRN (20:53)
[2017-07-01 21:18] LABS: Risk Ratio 6.39; Thyroid Stimulating Hormone 0.77 uIU/ml (0.358-3.74); VLDL CHOLESTEROL 36.6 MG/DL
[2017-07-01] MEDS ORDERED: VANCOMYCIN INJ 1,000 MG in SODIUM CHLORIDE 0.9% 250 ML IV ONE (22:00)
[2017-07-01] MEDS ORDERED: VANCOMYCIN INJ 750 MG in SODIUM CHLORIDE 0.9% 150 ML IV PRN (22:12)
[2017-07-01] MEDS: oxyCODONE/ACETAMINOPHEN 5-325 MG TABLET PO PRN (22:17)
[2017-07-01] MEDS: SEVELAMER CARBONATE 800 MG TABLET PO SCH (22:18)
[2017-07-01] MEDS: CALCIUM CARBONATE CHEW 500 MG TABLET PO SCH (22:19)
[2017-07-01] MEDS: prednisoLONE ACETATE 1% OPH SUSP 5 ML BOTTLE BOTH EYES SCH (22:19)
[2017-07-01] MEDS: METOPROLOL TARTRATE 100 MG TABLET PO SCH (22:19)
[2017-07-01] MEDS: INSULIN REGULAR 100 UNIT/ML SUBCUT SCH (22:41)
[2017-07-01] MEDS: diphenhydrAMINE CAP 25 MG CAPSULE PO PRN (23:01)
[2017-07-02] MEDS: HYDROmorphone 2 MG/1 ML VIAL IV PRN ×4 (00:45→23:28)
[2017-07-02] MEDS: PRAVASTATIN 20 MG TABLET PO SCH (08:20)
[2017-07-02] MEDS: PANTOPRAZOLE 40 MG TABLET PO SCH (08:20)
[2017-07-02] MEDS: cloNIDine 0.1 MG TABLET PO SCH (08:20)
[2017-07-02] MEDS: METOPROLOL TARTRATE 100 MG TABLET PO SCH ×2 (08:20→20:28)
[2017-07-02] MEDS: prednisoLONE ACETATE 1% OPH SUSP 5 ML BOTTLE BOTH EYES SCH ×5 (08:33→20:24)
[2017-07-02] MEDS: INSULIN REGULAR 100 UNIT/ML SUBCUT SCH ×4 (08:33→20:22)
[2017-07-02] MEDS: SEVELAMER CARBONATE 800 MG TABLET PO SCH ×3 (08:33→17:51)
[2017-07-02] MEDS: ASPIRIN EC 81 MG TABLET PO SCH (08:33)
[2017-07-02] MEDS ORDERED: OSELTAMIVIR 30 MG CAPSULE PO SCH (09:00)
[2017-07-02] MEDS ORDERED: LISINOPRIL 20 MG TABLET PO SCH (09:00)
[2017-07-02] MEDS ORDERED: PROPOFOL 200 MG/20 ML VIAL IV ONE (09:40)
[2017-07-02] MEDS ORDERED: SEVOFLURANE 1 UNIT/15 MINUTE INH ONE (09:40)
[2017-07-02] MEDS: CALCIUM CARBONATE CHEW 500 MG TABLET PO SCH ×2 (10:24→20:23)
[2017-07-02 12:12] LABS: Basophils % 0.4 % (0.0-0.8); Eosinophils # 0.2 10*3/uL (0.0-0.87); Eosinophils % 2.1 % (0.00-10.9); Hematocrit 38.7 VOL% (42.0-52.0); Hemoglobin 12.5 GM/DL (14.0-18.0); Immature Granulocytes % 0.5 %; Immature Granulocytes Absolute 0.04 #; Lymphocytes # 0.7 10*3/uL (1.4-4.0); Lymphocytes % 8.3 % (21.2-54.2); Mean Corpuscular HGB Conc 32.3 GM/DL (32-36); Mean Corpuscular Hemoglobin 30 PG (27-34); Mean Corpuscular Volume 93.3 FL (87-102); Mean Platelet Volume 10.3 FL (9.6-12.0); Monocytes # 0.7 10*3/uL (0.11-0.8); Monocytes % 8.9 % (1.7-12.7); NRBC # 0.02 10*3/uL; Neutrophils # 6.5 10*3/uL (1.4-7.4); Neutrophils % 79.8 % (38.7-73.9); Platelet Count 231 T/CUMM (130-400); Red Blood Count 4.15 MC/CUMM (3.8-5.5); Red Cell Distribution Width 18.7 % (9.3-17.3); White Blood Count 8.2 T/CUMM (4-12)
[2017-07-02 12:28] LABS: Albumin 2.7 G/DL (3.4-5.0); Bilirubin,Total 3.2 MG/DL (0.2-1.0); Calcium 8.1 MG/DL (8.5-10.1); Magnesium 2.3 MG/DL (1.8-2.4); Total Protein 6.8 G/DL (6.4-8.3)
[2017-07-02] MEDS: PERMETHRIN 5% CREAM 60 GM TUBE TOP ONE ×2 (17:51→23:29)
[2017-07-02] MEDS: LISINOPRIL 20 MG TABLET PO SCH (20:28)
[2017-07-03] MEDS: HYDROmorphone 2 MG/1 ML VIAL IV PRN ×5 (04:35→22:58)
[2017-07-03 07:09] LABS: Basophils % 0.4 % (0.0-0.8); Eosinophils # 0.2 10*3/uL (0.0-0.87); Eosinophils % 1.8 % (0.00-10.9); Hematocrit 35.3 VOL% (42.0-52.0); Hemoglobin 11.6 GM/DL (14.0-18.0); Immature Granulocytes % 0.5 %; Immature Granulocytes Absolute 0.05 #; Lymphocytes # 0.8 10*3/uL (1.4-4.0); Lymphocytes % 8.3 % (21.2-54.2); Mean Corpuscular HGB Conc 32.9 GM/DL (32-36); Mean Corpuscular Hemoglobin 30 PG (27-34); Mean Corpuscular Volume 91.7 FL (87-102); Mean Platelet Volume 10.4 FL (9.6-12.0); Neutrophils # 7.4 10*3/uL (1.4-7.4); Platelet Count 218 T/CUMM (130-400); Red Blood Count 3.85 MC/CUMM (3.8-5.5); Red Cell Distribution Width 18.6 % (9.3-17.3); White Blood Count 9.4 T/CUMM (4-12)
[2017-07-03 07:23] LABS: Calcium 7.5 MG/DL (8.5-10.1); Osmolality,Calculated 285.8 MOS/KG (273-304); Potassium 3.4 MMOL/L (3.5-5.1)
[2017-07-03] MEDS: LISINOPRIL 20 MG TABLET PO SCH ×2 (09:14→21:10)
[2017-07-03] MEDS: SEVELAMER CARBONATE 800 MG TABLET PO SCH ×3 (09:14→16:13)
[2017-07-03] MEDS: CALCIUM CARBONATE CHEW 500 MG TABLET PO SCH ×2 (09:14→21:10)
[2017-07-03] MEDS: PRAVASTATIN 20 MG TABLET PO SCH (09:15)
[2017-07-03] MEDS: METOPROLOL TARTRATE 100 MG TABLET PO SCH ×2 (09:15→21:10)
[2017-07-03] MEDS: ASPIRIN EC 81 MG TABLET PO SCH (09:15)
[2017-07-03] MEDS: PANTOPRAZOLE 40 MG TABLET PO SCH (09:15)
[2017-07-03] MEDS: cloNIDine 0.1 MG TABLET PO SCH (09:15)
[2017-07-03] MEDS: INSULIN REGULAR 100 UNIT/ML SUBCUT SCH ×4 (09:21→20:31)
[2017-07-03] MEDS: prednisoLONE ACETATE 1% OPH SUSP 5 ML BOTTLE BOTH EYES SCH ×4 (09:21→21:10)
[2017-07-03] MEDS: POTASSIUM CHLORIDE 20 MEQ TABLET PO PRN ×3 (11:20→15:44)
[2017-07-04] MEDS: HYDROmorphone 2 MG/1 ML VIAL IV PRN ×4 (02:03→20:50)
[2017-07-04] MEDS: INSULIN REGULAR 100 UNIT/ML SUBCUT SCH ×4 (09:03→20:32)
[2017-07-04] MEDS: ASPIRIN EC 81 MG TABLET PO SCH (09:11)
[2017-07-04] MEDS: SEVELAMER CARBONATE 800 MG TABLET PO SCH ×3 (09:11→16:13)
[2017-07-04] MEDS: METOPROLOL TARTRATE 100 MG TABLET PO SCH ×2 (09:11→20:49)
[2017-07-04] MEDS: PANTOPRAZOLE 40 MG TABLET PO SCH (09:11)
[2017-07-04] MEDS: PRAVASTATIN 20 MG TABLET PO SCH (09:11)
[2017-07-04] MEDS: CALCIUM CARBONATE CHEW 500 MG TABLET PO SCH ×2 (09:11→20:33)
[2017-07-04] MEDS: prednisoLONE ACETATE 1% OPH SUSP 5 ML BOTTLE BOTH EYES SCH ×4 (09:12→20:32)
[2017-07-04] MEDS: LISINOPRIL 20 MG TABLET PO SCH ×2 (09:12→20:49)
[2017-07-04] MEDS: cloNIDine 0.1 MG TABLET PO SCH (09:12)
[2017-07-04] MEDS: oxyCODONE/ACETAMINOPHEN 5-325 MG TABLET PO PRN (12:16)
[2017-07-04] MEDS ORDERED: diphenhydrAMINE 2% CREAM 28 GM TUBE TOP PRN (16:07)
[2017-07-04] MEDS: diphenhydrAMINE CAP 25 MG CAPSULE PO PRN (16:13)
[2017-07-04] MEDS: ceFAZolin 1,000 MG in SYRINGE 1 EACH IV SCH (16:14)
[2017-07-05] MEDS: HYDROmorphone 2 MG/1 ML VIAL IV PRN ×3 (01:06→09:55)
[2017-07-05 05:45] LABS: Basophils % 0.5 % (0.0-0.8); Eosinophils # 0.2 10*3/uL (0.0-0.87); Eosinophils % 2.3 % (0.00-10.9); Hematocrit 36.5 VOL% (42.0-52.0); Hemoglobin 12.1 GM/DL (14.0-18.0); Immature Granulocytes % 0.5 %; Immature Granulocytes Absolute 0.04 #; Lymphocytes # 0.9 10*3/uL (1.4-4.0); Lymphocytes % 11.4 % (21.2-54.2); Mean Corpuscular HGB Conc 33.2 GM/DL (32-36); Mean Corpuscular Hemoglobin 30 PG (27-34); Mean Corpuscular Volume 91.3 FL (87-102); Mean Platelet Volume 10.6 FL (9.6-12.0); Monocytes # 0.9 10*3/uL (0.11-0.8); Monocytes % 11.1 % (1.7-12.7); Neutrophils # 6.2 10*3/uL (1.4-7.4); Neutrophils % 74.2 % (38.7-73.9); Platelet Count 225 T/CUMM (130-400); Red Cell Distribution Width 18.2 % (9.3-17.3); White Blood Count 8.3 T/CUMM (4-12)
[2017-07-05 06:23] LABS: Calcium 7.6 MG/DL (8.5-10.1); Osmolality,Calculated 290.1 MOS/KG (273-304); Potassium 4.8 MMOL/L (3.5-5.1)
[2017-07-05] MEDS: INSULIN REGULAR 100 UNIT/ML SUBCUT SCH ×4 (09:49→21:00)
[2017-07-05] MEDS: LISINOPRIL 20 MG TABLET PO SCH ×2 (09:49→21:50)
[2017-07-05] MEDS: cloNIDine 0.1 MG TABLET PO SCH (09:50)
[2017-07-05] MEDS: PANTOPRAZOLE 40 MG TABLET PO SCH (09:50)
[2017-07-05] MEDS: SEVELAMER CARBONATE 800 MG TABLET PO SCH ×3 (09:50→17:20)
[2017-07-05] MEDS: PRAVASTATIN 20 MG TABLET PO SCH (09:51)
[2017-07-05] MEDS: prednisoLONE ACETATE 1% OPH SUSP 5 ML BOTTLE BOTH EYES SCH ×3 (09:51→21:51)
[2017-07-05] MEDS: METOPROLOL TARTRATE 100 MG TABLET PO SCH ×2 (09:51→22:03)
[2017-07-05] MEDS: ASPIRIN EC 81 MG TABLET PO SCH (09:52)
[2017-07-05] MEDS: ceFAZolin 1,000 MG in SYRINGE 1 EACH IV SCH (17:19)
[2017-07-06] MEDS: ASPIRIN EC 81 MG TABLET PO SCH (09:30)
[2017-07-06] MEDS: METOPROLOL TARTRATE 100 MG TABLET PO SCH (09:30)
[2017-07-06] MEDS: LISINOPRIL 20 MG TABLET PO SCH (09:30)
[2017-07-06] MEDS: prednisoLONE ACETATE 1% OPH SUSP 5 ML BOTTLE BOTH EYES SCH (09:30)
[2017-07-06] MEDS: PANTOPRAZOLE 40 MG TABLET PO SCH (09:30)
[2017-07-06] MEDS: PRAVASTATIN 20 MG TABLET PO SCH (09:30)
[2017-07-06] MEDS: cloNIDine 0.1 MG TABLET PO SCH (09:30)
[2017-07-06] MEDS: INSULIN REGULAR 100 UNIT/ML SUBCUT SCH (09:30)
[2017-07-06] MEDS: SEVELAMER CARBONATE 800 MG TABLET PO SCH (09:30)
[2017-07-06 09:36] VITALS: BP 123/89
== END 2017-07-06 09:20 | disposition home health service (06) | DRG 513 ==
LOC: N.ED 12:28 → N.EDINP 16:37 → N.5E 18:46
PROVIDERS: ADMIT Internal Medicine; ATTEND Internal Medicine

== ENCOUNTER 2017-09-02 11:59 | Inpatient (IN) ==
[2017-09-02 13:17] LABS: Lactic Acid 1.5 MMOL/L (0.4-2.0)
[2017-09-02 13:24] LABS: Blood Urea Nitrogen 48 MG/DL (7-18); Calcium 8.1 MG/DL (8.5-10.1); Glucose 94 MG/DL (74-106); Osmolality,Calculated 276.5 MOS/KG (273-304); Potassium 4.3 MMOL/L (3.5-5.1); Sodium 132 MMOL/L (136-145)
[2017-09-02 13:25] LABS: Troponin I Only < 0.015 NG/ML (0.00-0.045)
[2017-09-02] MEDS ORDERED: ONDANSETRON 4 MG/2 ML VIAL IV PRN (15:07)
[2017-09-02] MEDS ORDERED: DEXTROSE 50% 25 GM/50 ML VIAL IV PRN (16:24)
[2017-09-02] MEDS ORDERED: GLUCAGON 1 MG VIAL IM PRN (16:24)
[2017-09-02] MEDS: MORPHINE 2 MG/1 ML SYRINGE IV PRN (16:45)
[2017-09-02] MEDS ORDERED: ALBUTEROL 2.5 MG/3 ML NEB RESP TX PRN (18:00)
[2017-09-02] MEDS ORDERED: INSULIN REGULAR 100 UNIT/ML SUBCUT SCH (18:00)
[2017-09-02] MEDS ORDERED: INSULIN GLARGINE 100 UNIT/ML SUBCUT SCH (21:00)
[2017-09-02] MEDS: METOPROLOL TARTRATE 100 MG TABLET PO SCH (21:31)
[2017-09-02] MEDS: traMADol 50 MG TABLET PO PRN (21:32)
[2017-09-02] MEDS: INSULIN REGULAR 100 UNIT/ML SUBCUT SCH (21:33)
[2017-09-03] MEDS: MORPHINE 2 MG/1 ML SYRINGE IV PRN (00:15)
[2017-09-03 04:06] LABS: Basophils # 0.1 10*3/uL (0.0-0.2); Basophils % 0.5 % (0.0-0.8); Eosinophils # 0.1 10*3/uL (0.0-0.87); Hematocrit 33.4 VOL% (42.0-52.0); Hemoglobin 10.3 GM/DL (14.0-18.0); Immature Granulocytes % 0.8 %; Immature Granulocytes Absolute 0.09 #; Lymphocytes # 0.8 10*3/uL (1.4-4.0); Lymphocytes % 7.5 % (21.2-54.2); Mean Corpuscular HGB Conc 30.8 GM/DL (32-36); Mean Corpuscular Hemoglobin 31 PG (27-34); Mean Corpuscular Volume 99.1 FL (87-102); Mean Platelet Volume 10.3 FL (9.6-12.0); Monocytes % 9.2 % (1.7-12.7); NRBC # 0.11 10*3/uL; Neutrophils # 8.9 10*3/uL (1.4-7.4); Platelet Count 325 T/CUMM (130-400); Red Blood Count 3.37 MC/CUMM (3.8-5.5); Red Cell Distribution Width 19.3 % (9.3-17.3)
[2017-09-03 04:37] LABS: Albumin 2.5 G/DL (3.4-5.0); Bilirubin,Total 3.7 MG/DL (0.2-1.0); Osmolality,Calculated 282.4 MOS/KG (273-304); Total Protein 7.3 G/DL (6.4-8.3)
[2017-09-03] MEDS ORDERED: NALOXONE 0.4 MG/ML VIAL ONE (07:01)
[2017-09-03] MEDS: NALOXONE 0.4 MG/ML VIAL IV PRN ×2 (07:05→16:47)
[2017-09-03 08:08] LABS: ABG HCO3 24.9 MMOL/L (20-26); ABG Oxygen Saturation 75.8 % (95-100); ABG PCO2 44.3 MM HG (35-48); ABG PH 7.382 (7.35-7.45); ABG PO2 48.7 MM HG (80-95); ABG TCO2 24.3 MMOL/L (23-27)
[2017-09-03] MEDS: INSULIN REGULAR 100 UNIT/ML SUBCUT SCH ×4 (08:25→21:09)
[2017-09-03] MEDS: METOPROLOL TARTRATE 100 MG TABLET PO SCH (08:35)
[2017-09-03] MEDS: PRAVASTATIN 20 MG TABLET PO SCH (08:35)
[2017-09-03 08:53] LABS: Calcium 7.8 MG/DL (8.5-10.1); Osmolality,Calculated 283.5 MOS/KG (273-304); Potassium 4.6 MMOL/L (3.5-5.1)
[2017-09-03] MEDS ORDERED: LOSARTAN 50 MG TABLET PO SCH (09:00)
[2017-09-03] MEDS ORDERED: cloNIDine 0.1 MG TABLET PO SCH (09:00)
[2017-09-03 11:32] LABS: Hepatitis A Ab IgM Result Negative (Negative); Hepatitis B Core IgM Quant 0.15 Index; Hepatitis B Core IgM Result Negative (Negative); Hepatitis B Surface Ag Quant < 0.10 Index; Hepatitis B Surface Ag Result Negative (Negative); Hepatitis C Virus Ab Quant 0.08 Index; Hepatitis C Virus Ab Result Negative (Negative)
[2017-09-03] MEDS ORDERED: SODIUM CHLORIDE 0.9% 250 ML IV ONE (15:45)
[2017-09-03] MEDS ORDERED: VANCOMYCIN INJ 750 MG in SODIUM CHLORIDE 0.9% 250 ML IV PRN (16:57)
[2017-09-03] MEDS ORDERED: GENTAMICIN INJ 160 MG in SODIUM CHLORIDE 0.9% 100 ML IV PRN (16:59)
[2017-09-03] MEDS ORDERED: VANCOMYCIN INJ 2,000 MG in SODIUM CHLORIDE 0.9% 500 ML IV ONE (18:00)
[2017-09-03] MEDS ORDERED: GENTAMICIN INJ 200 MG in SODIUM CHLORIDE 0.9% 100 ML IV ONE (20:00)
[2017-09-04] MEDS: INSULIN REGULAR 100 UNIT/ML SUBCUT SCH ×4 (06:45→22:10)
[2017-09-04 07:00] LABS: Basophils % 0.3 % (0.0-0.8); Eosinophils # 0.2 10*3/uL (0.0-0.87); Eosinophils % 1.5 % (0.00-10.9); Hematocrit 32.2 VOL% (42.0-52.0); Hemoglobin 10.5 GM/DL (14.0-18.0); Immature Granulocytes % 0.6 %; Immature Granulocytes Absolute 0.07 #; Lymphocytes # 0.7 10*3/uL (1.4-4.0); Lymphocytes % 5.8 % (21.2-54.2); Mean Corpuscular HGB Conc 32.6 GM/DL (32-36); Mean Corpuscular Hemoglobin 31 PG (27-34); Mean Corpuscular Volume 96.4 FL (87-102); Mean Platelet Volume 10.1 FL (9.6-12.0); Monocytes # 1.3 10*3/uL (0.11-0.8); Monocytes % 10.7 % (1.7-12.7); NRBC # 0.07 10*3/uL; Neutrophils # 10.2 10*3/uL (1.4-7.4); Neutrophils % 81.1 % (38.7-73.9); Platelet Count 298 T/CUMM (130-400); Red Blood Count 3.34 MC/CUMM (3.8-5.5); Red Cell Distribution Width 19.2 % (9.3-17.3); White Blood Count 12.6 T/CUMM (4-12)
[2017-09-04 07:42] LABS: Calcium 7.4 MG/DL (8.5-10.1); Osmolality,Calculated 291.7 MOS/KG (273-304); Potassium 3.9 MMOL/L (3.5-5.1)
[2017-09-04] MEDS: PRAVASTATIN 20 MG TABLET PO SCH (09:45)
[2017-09-04] MEDS ORDERED: MIDAZOLAM 2 MG/2 ML VIAL ONE (10:56)
[2017-09-04] MEDS ORDERED: fentaNYL 100 MCG/2 ML VIAL ONE (10:57)
[2017-09-04] MEDS: traMADol 50 MG TABLET PO PRN (17:35)
[2017-09-04] MEDS: MORPHINE 2 MG/1 ML SYRINGE IV PRN (19:20)
[2017-09-05] MEDS: MORPHINE 2 MG/1 ML SYRINGE IV PRN ×4 (05:08→17:58)
[2017-09-05 06:43] LABS: Basophils # 0.1 10*3/uL (0.0-0.2); Basophils % 0.4 % (0.0-0.8); Eosinophils # 0.2 10*3/uL (0.0-0.87); Hematocrit 32.3 VOL% (42.0-52.0); Hemoglobin 10.3 GM/DL (14.0-18.0); Immature Granulocytes % 0.6 %; Immature Granulocytes Absolute 0.07 #; Lymphocytes # 0.8 10*3/uL (1.4-4.0); Lymphocytes % 6.7 % (21.2-54.2); Mean Corpuscular HGB Conc 31.9 GM/DL (32-36); Mean Corpuscular Hemoglobin 31 PG (27-34); Mean Corpuscular Volume 97.3 FL (87-102); Mean Platelet Volume 10.1 FL (9.6-12.0); Monocytes # 1.1 10*3/uL (0.11-0.8); Monocytes % 9.4 % (1.7-12.7); NRBC # 0.05 10*3/uL; Neutrophils # 9.6 10*3/uL (1.4-7.4); Neutrophils % 80.9 % (38.7-73.9); Platelet Count 274 T/CUMM (130-400); Red Blood Count 3.32 MC/CUMM (3.8-5.5); Red Cell Distribution Width 19.2 % (9.3-17.3); White Blood Count 11.9 T/CUMM (4-12)
[2017-09-05 07:13] LABS: Calcium 7.6 MG/DL (8.5-10.1)
[2017-09-05] MEDS: INSULIN REGULAR 100 UNIT/ML SUBCUT SCH ×4 (08:33→21:55)
[2017-09-05] MEDS: PRAVASTATIN 20 MG TABLET PO SCH (09:40)
[2017-09-05] MEDS: SODIUM HYPOCHLORITE 0.25% IRRIG 473 ML BOTTLE TOP SCH (13:11)
[2017-09-05] MEDS ORDERED: GENTAMICIN INJ 160 MG in SODIUM CHLORIDE 0.9% 100 ML IV ONE (17:00)
[2017-09-05] MEDS ORDERED: VANCOMYCIN INJ 750 MG in SODIUM CHLORIDE 0.9% 250 ML IV ONE (18:00)
[2017-09-06] MEDS: MORPHINE 2 MG/1 ML SYRINGE IV PRN ×2 (01:10→06:42)
[2017-09-06 06:16] LABS: Basophils % 0.3 % (0.0-0.8); Eosinophils # 0.2 10*3/uL (0.0-0.87); Hematocrit 32.7 VOL% (42.0-52.0); Hemoglobin 10.4 GM/DL (14.0-18.0); Immature Granulocytes % 0.7 %; Immature Granulocytes Absolute 0.08 #; Lymphocytes # 0.9 10*3/uL (1.4-4.0); Lymphocytes % 7.3 % (21.2-54.2); Mean Corpuscular HGB Conc 31.8 GM/DL (32-36); Mean Corpuscular Hemoglobin 31 PG (27-34); Mean Corpuscular Volume 97.6 FL (87-102); Mean Platelet Volume 10.2 FL (9.6-12.0); Monocytes # 1.2 10*3/uL (0.11-0.8); Monocytes % 9.9 % (1.7-12.7); NRBC # 0.02 10*3/uL; Neutrophils # 9.8 10*3/uL (1.4-7.4); Neutrophils % 79.8 % (38.7-73.9); Platelet Count 240 T/CUMM (130-400); Red Blood Count 3.35 MC/CUMM (3.8-5.5); Red Cell Distribution Width 19.5 % (9.3-17.3); White Blood Count 12.3 T/CUMM (4-12)
[2017-09-06 06:51] LABS: Calcium 7.8 MG/DL (8.5-10.1); Osmolality,Calculated 285.7 MOS/KG (273-304); Potassium 4.2 MMOL/L (3.5-5.1)
[2017-09-06] MEDS: hydrOXYzine HCL 25 MG TABLET PO PRN (06:51)
[2017-09-06] MEDS: INSULIN REGULAR 100 UNIT/ML SUBCUT SCH ×4 (08:16→22:08)
[2017-09-06] MEDS: PRAVASTATIN 20 MG TABLET PO SCH (09:13)
[2017-09-06] MEDS: SODIUM HYPOCHLORITE 0.25% IRRIG 473 ML BOTTLE TOP SCH (09:13)
[2017-09-07] MEDS: MORPHINE 2 MG/1 ML SYRINGE IV PRN (03:59)
[2017-09-07] MEDS: INSULIN REGULAR 100 UNIT/ML SUBCUT SCH ×4 (07:53→22:50)
[2017-09-07] MEDS: PRAVASTATIN 20 MG TABLET PO SCH (09:29)
[2017-09-07] MEDS: SODIUM HYPOCHLORITE 0.25% IRRIG 473 ML BOTTLE TOP SCH (13:19)
[2017-09-07 13:36] LABS: Gentamicin,Random 2.6 UG/ML; Vancomycin,Random 26.1 UG/ML
[2017-09-07] MEDS ORDERED: VANCOMYCIN INJ 500 MG in SODIUM CHLORIDE 0.9% 100 ML IV PRN (14:00)
[2017-09-07] MEDS ORDERED: GENTAMICIN INJ 160 MG in SODIUM CHLORIDE 0.9% 100 ML IV ONE ×2 (20:00→22:00)
[2017-09-07] MEDS ORDERED: VANCOMYCIN INJ 500 MG in SODIUM CHLORIDE 0.9% 100 ML IV ONE (21:00)
[2017-09-07] MEDS: guaiFENesin/CODEINE 5 ML LIQUID PO PRN (22:09)
[2017-09-08] MEDS: MORPHINE 2 MG/1 ML SYRINGE IV PRN ×2 (03:23→22:21)
[2017-09-08] MEDS ORDERED: MIDAZOLAM 10 MG/2 ML VIAL IV ONE (07:43)
[2017-09-08] MEDS ORDERED: fentaNYL 100 MCG/2 ML VIAL IV ONE (07:43)
[2017-09-08] MEDS: PRAVASTATIN 20 MG TABLET PO SCH (08:16)
[2017-09-08] MEDS: INSULIN REGULAR 100 UNIT/ML SUBCUT SCH ×3 (10:48→16:00)
[2017-09-08] MEDS: SODIUM HYPOCHLORITE 0.25% IRRIG 473 ML BOTTLE TOP SCH (10:53)
[2017-09-08] MEDS ORDERED: DIAZEPAM 5 MG TABLET PO ONE (13:37)
[2017-09-08] MEDS ORDERED: HEPARIN/NACL 0.9% 2 UNITS/ML 2,000 ML IV ONE (14:29)
[2017-09-08] MEDS: SODIUM CHLORIDE 0.45% 1,000 ML IV SCH (14:41)
[2017-09-08] MEDS ORDERED: fentaNYL 100 MCG/2 ML VIAL ONE (14:50)
[2017-09-08] MEDS ORDERED: MIDAZOLAM 2 MG/2 ML VIAL ONE (14:50)
[2017-09-08] MEDS ORDERED: cloNIDine 0.1 MG TABLET PO SCH (21:00)
[2017-09-08] MEDS: guaiFENesin/CODEINE 5 ML LIQUID PO PRN (22:21)
[2017-09-09] MEDS: INSULIN REGULAR 100 UNIT/ML SUBCUT SCH ×5 (00:55→21:39)
[2017-09-09] MEDS: guaiFENesin/CODEINE 5 ML LIQUID PO PRN ×2 (09:03→21:39)
[2017-09-09] MEDS: PRAVASTATIN 20 MG TABLET PO SCH (09:03)
[2017-09-09] MEDS: hydrOXYzine HCL 25 MG TABLET PO PRN (09:03)
[2017-09-09] MEDS: traMADol 50 MG TABLET PO PRN ×2 (09:04→21:38)
[2017-09-09] MEDS: SODIUM CHLORIDE 0.45% 1,000 ML IV SCH (14:50)
[2017-09-09] MEDS: SODIUM HYPOCHLORITE 0.25% IRRIG 473 ML BOTTLE TOP SCH (16:58)
[2017-09-09] MEDS ORDERED: GENTAMICIN INJ 160 MG in SODIUM CHLORIDE 0.9% 100 ML IV ONE (18:00)
[2017-09-09] MEDS ORDERED: VANCOMYCIN INJ 500 MG in SODIUM CHLORIDE 0.9% 100 ML IV ONE ×2 (18:30→23:30)
[2017-09-09] MEDS: MORPHINE 2 MG/1 ML SYRINGE IV PRN (23:35)
[2017-09-10] MEDS: INSULIN REGULAR 100 UNIT/ML SUBCUT SCH ×4 (08:49→20:24)
[2017-09-10] MEDS: PRAVASTATIN 20 MG TABLET PO SCH (08:50)
[2017-09-10] MEDS: guaiFENesin/CODEINE 5 ML LIQUID PO PRN ×2 (08:53→20:26)
[2017-09-10] MEDS: SODIUM CHLORIDE 0.45% 1,000 ML IV SCH (14:19)
[2017-09-10] MEDS: SODIUM HYPOCHLORITE 0.25% IRRIG 473 ML BOTTLE TOP SCH (14:24)
[2017-09-11] MEDS: guaiFENesin/CODEINE 5 ML LIQUID PO PRN ×3 (02:43→18:02)
[2017-09-11 05:46] LABS: Basophils # 0.1 10*3/uL (0.0-0.2); Basophils % 0.4 % (0.0-0.8); Eosinophils # 0.3 10*3/uL (0.0-0.87); Eosinophils % 1.8 % (0.00-10.9); Hematocrit 31.6 VOL% (42.0-52.0); Hemoglobin 9.9 GM/DL (14.0-18.0); Immature Granulocytes % 0.7 %; Immature Granulocytes Absolute 0.12 #; Lymphocytes % 5.6 % (21.2-54.2); Mean Corpuscular HGB Conc 31.3 GM/DL (32-36); Mean Corpuscular Hemoglobin 31 PG (27-34); Mean Corpuscular Volume 97.2 FL (87-102); Mean Platelet Volume 11.2 FL (9.6-12.0); Monocytes # 1.6 10*3/uL (0.11-0.8); Monocytes % 9.5 % (1.7-12.7); Neutrophils # 13.8 10*3/uL (1.4-7.4); Platelet Count 250 T/CUMM (130-400); Red Blood Count 3.25 MC/CUMM (3.8-5.5); Red Cell Distribution Width 18.3 % (9.3-17.3); White Blood Count 16.9 T/CUMM (4-12)
[2017-09-11] MEDS: INSULIN REGULAR 100 UNIT/ML SUBCUT SCH ×5 (09:27→21:18)
[2017-09-11] MEDS: PRAVASTATIN 20 MG TABLET PO SCH (09:48)
[2017-09-11] MEDS: SODIUM HYPOCHLORITE 0.25% IRRIG 473 ML BOTTLE TOP SCH (10:50)
[2017-09-11] MEDS: PIPERACILLIN/TAZOBACTAM 3,375 MG in SODIUM CHLORIDE 0.9% 100 ML IV SCH (13:39)
[2017-09-11] MEDS: PANTOPRAZOLE 40 MG TABLET PO SCH (13:39)
[2017-09-11] MEDS: ALBUTEROL/IPRATROPIUM 3 ML NEB RESP TX SCH (19:45)
[2017-09-12] MEDS: ALBUTEROL/IPRATROPIUM 3 ML NEB RESP TX SCH ×4 (00:56→20:27)
[2017-09-12] MEDS: guaiFENesin/CODEINE 5 ML LIQUID PO PRN ×2 (01:16→20:35)
[2017-09-12] MEDS: PIPERACILLIN/TAZOBACTAM 3,375 MG in SODIUM CHLORIDE 0.9% 100 ML IV SCH ×2 (01:16→15:07)
[2017-09-12 06:52] LABS: Basophils # 0.1 10*3/uL (0.0-0.2); Basophils % 0.4 % (0.0-0.8); Eosinophils # 0.4 10*3/uL (0.0-0.87); Eosinophils % 2.3 % (0.00-10.9); Hematocrit 29.7 VOL% (42.0-52.0); Hemoglobin 9.3 GM/DL (14.0-18.0); Immature Granulocytes % 0.8 %; Immature Granulocytes Absolute 0.14 #; Lymphocytes % 5.3 % (21.2-54.2); Mean Corpuscular HGB Conc 31.3 GM/DL (32-36); Mean Corpuscular Hemoglobin 30 PG (27-34); Mean Corpuscular Volume 95.8 FL (87-102); Mean Platelet Volume 10.8 FL (9.6-12.0); Monocytes # 1.9 10*3/uL (0.11-0.8); Monocytes % 10.6 % (1.7-12.7); Neutrophils # 14.5 10*3/uL (1.4-7.4); Neutrophils % 80.6 % (38.7-73.9); Platelet Count 302 T/CUMM (130-400); Red Cell Distribution Width 17.8 % (9.3-17.3)
[2017-09-12 07:38] LABS: Calcium 7.9 MG/DL (8.5-10.1); Osmolality,Calculated 284.2 MOS/KG (273-304)
[2017-09-12] MEDS: INSULIN REGULAR 100 UNIT/ML SUBCUT SCH ×4 (08:18→20:09)
[2017-09-12] MEDS: PANTOPRAZOLE 40 MG TABLET PO SCH (08:18)
[2017-09-12] MEDS: PRAVASTATIN 20 MG TABLET PO SCH (08:18)
[2017-09-12] MEDS: SODIUM HYPOCHLORITE 0.25% IRRIG 473 ML BOTTLE TOP SCH (08:18)
[2017-09-12] MEDS ORDERED: BUPIVACAINE 0.25% 50 ML VIAL ONE (08:30)
[2017-09-12] MEDS ORDERED: MIDAZOLAM 2 MG/2 ML VIAL ONE (10:04)
[2017-09-12] MEDS ORDERED: PROPOFOL 200 MG/20 ML VIAL IV ONE (10:04)
[2017-09-12] MEDS ORDERED: fentaNYL 100 MCG/2 ML VIAL ONE (10:04)
[2017-09-12] MEDS ORDERED: ONDANSETRON 4 MG/2 ML VIAL ONE (10:04)
[2017-09-12] MEDS: SODIUM CHLORIDE 0.9% 250 ML IV SCH (12:26)
[2017-09-12] MEDS ORDERED: VANCOMYCIN INJ 500 MG in SODIUM CHLORIDE 0.9% 100 ML IV ONE (17:00)
[2017-09-12] MEDS ORDERED: GENTAMICIN INJ 160 MG in SODIUM CHLORIDE 0.9% 100 ML IV ONE (17:00)
[2017-09-12] MEDS: hydrOXYzine HCL 25 MG TABLET PO PRN (20:35)
[2017-09-13] MEDS: ALBUTEROL/IPRATROPIUM 3 ML NEB RESP TX SCH ×4 (00:12→19:15)
[2017-09-13] MEDS: PIPERACILLIN/TAZOBACTAM 3,375 MG in SODIUM CHLORIDE 0.9% 100 ML IV SCH ×2 (00:41→12:38)
[2017-09-13] MEDS: guaiFENesin/CODEINE 5 ML LIQUID PO PRN ×2 (04:11→20:22)
[2017-09-13 06:06] LABS: Albumin 2.1 G/DL (3.4-5.0); Calcium 7.7 MG/DL (8.5-10.1); Osmolality,Calculated 285.8 MOS/KG (273-304)
[2017-09-13] MEDS: SODIUM CHLORIDE 0.9% 250 ML IV SCH ×2 (08:00→09:07)
[2017-09-13] MEDS: INSULIN REGULAR 100 UNIT/ML SUBCUT SCH ×4 (08:01→21:43)
[2017-09-13] MEDS: SODIUM HYPOCHLORITE 0.25% IRRIG 473 ML BOTTLE TOP SCH (08:01)
[2017-09-13] MEDS: PANTOPRAZOLE 40 MG TABLET PO SCH (09:07)
[2017-09-13] MEDS: PRAVASTATIN 20 MG TABLET PO SCH (09:07)
[2017-09-13] MEDS: SEVELAMER CARBONATE 800 MG TABLET PO SCH (17:25)
[2017-09-14] MEDS: hydrOXYzine HCL 25 MG TABLET PO PRN ×2 (00:04→11:35)
[2017-09-14] MEDS: guaiFENesin/CODEINE 5 ML LIQUID PO PRN ×2 (00:18→21:33)
[2017-09-14] MEDS: PIPERACILLIN/TAZOBACTAM 3,375 MG in SODIUM CHLORIDE 0.9% 100 ML IV SCH ×2 (00:27→19:05)
[2017-09-14] MEDS: ALBUTEROL/IPRATROPIUM 3 ML NEB RESP TX SCH ×4 (00:40→20:30)
[2017-09-14 07:22] LABS: Basophils # 0.1 10*3/uL (0.0-0.2); Basophils % 0.5 % (0.0-0.8); Eosinophils # 0.4 10*3/uL (0.0-0.87); Hematocrit 27.1 VOL% (42.0-52.0); Hemoglobin 8.9 GM/DL (14.0-18.0); Immature Granulocytes % 0.9 %; Immature Granulocytes Absolute 0.13 #; Lymphocytes # 0.9 10*3/uL (1.4-4.0); Lymphocytes % 6.7 % (21.2-54.2); Mean Corpuscular HGB Conc 32.8 GM/DL (32-36); Mean Corpuscular Hemoglobin 31 PG (27-34); Mean Corpuscular Volume 94.8 FL (87-102); Mean Platelet Volume 10.6 FL (9.6-12.0); Monocytes # 1.3 10*3/uL (0.11-0.8); Monocytes % 9.3 % (1.7-12.7); Neutrophils % 79.6 % (38.7-73.9); Platelet Count 399 T/CUMM (130-400); Red Blood Count 2.86 MC/CUMM (3.8-5.5); Red Cell Distribution Width 18.1 % (9.3-17.3); White Blood Count 13.9 T/CUMM (4-12)
[2017-09-14 07:53] LABS: Gentamicin,Random 1.3 UG/ML; Vancomycin,Random 15.3 UG/ML
[2017-09-14] MEDS: PRAVASTATIN 20 MG TABLET PO SCH (08:07)
[2017-09-14] MEDS: PANTOPRAZOLE 40 MG TABLET PO SCH (08:07)
[2017-09-14] MEDS: SEVELAMER CARBONATE 800 MG TABLET PO SCH ×3 (08:07→19:06)
[2017-09-14] MEDS: INSULIN REGULAR 100 UNIT/ML SUBCUT SCH ×4 (08:08→20:39)
[2017-09-14] MEDS: COLLAGENASE OINT 30 GM TUBE TOP SCH (11:36)
[2017-09-14] MEDS: SODIUM HYPOCHLORITE 0.25% IRRIG 473 ML BOTTLE TOP SCH (11:36)
[2017-09-14] MEDS ORDERED: GENTAMICIN INJ 160 MG in SODIUM CHLORIDE 0.9% 100 ML IV ONE (17:00)
[2017-09-14] MEDS ORDERED: VANCOMYCIN INJ 500 MG in SODIUM CHLORIDE 0.9% 100 ML IV ONE (17:00)
[2017-09-14] MEDS: SODIUM CHLORIDE 0.9% 250 ML IV SCH ×3 (20:29→22:30)
[2017-09-15] MEDS: ALBUTEROL/IPRATROPIUM 3 ML NEB RESP TX SCH ×2 (00:30→07:29)
[2017-09-15] MEDS: PIPERACILLIN/TAZOBACTAM 3,375 MG in SODIUM CHLORIDE 0.9% 100 ML IV SCH (01:12)
[2017-09-15] MEDS: guaiFENesin/CODEINE 5 ML LIQUID PO PRN (05:55)
[2017-09-15] MEDS: INSULIN REGULAR 100 UNIT/ML SUBCUT SCH (07:25)
[2017-09-15 07:55] VITALS: BP 126/84
[2017-09-15] MEDS: SEVELAMER CARBONATE 800 MG TABLET PO SCH (08:35)
[2017-09-15] MEDS: PANTOPRAZOLE 40 MG TABLET PO SCH (08:35)
[2017-09-15] MEDS: COLLAGENASE OINT 30 GM TUBE TOP SCH (08:35)
[2017-09-15] MEDS: SODIUM HYPOCHLORITE 0.25% IRRIG 473 ML BOTTLE TOP SCH (08:35)
[2017-09-15] MEDS: PRAVASTATIN 20 MG TABLET PO SCH (08:35)
== END 2017-09-15 11:58 | disposition home health service (06) | DRG 623 ==
LOC: EDBD → EDUNIT# → N.ED 11:59 → SUATTDRO 14:00 → N.EDINP 14:00 → N.5E 15:10
PROVIDERS: ADMIT Internal Medicine; ATTEND Hospitalist

== ENCOUNTER 2017-10-04 12:02 | Inpatient (IN) ==
[2017-10-04 12:39] LABS: Basophils % 0.3 % (0.0-0.8); Eosinophils # 0.1 10*3/uL (0.0-0.87); Eosinophils % 1.4 % (0.00-10.9); Hematocrit 27.9 VOL% (42.0-52.0); Immature Granulocytes % 0.7 %; Immature Granulocytes Absolute 0.06 #; Lymphocytes # 0.9 10*3/uL (1.4-4.0); Lymphocytes % 9.5 % (21.2-54.2); Mean Corpuscular HGB Conc 32.3 GM/DL (32-36); Mean Corpuscular Hemoglobin 31 PG (27-34); Mean Corpuscular Volume 96.2 FL (87-102); Mean Platelet Volume 11.2 FL (9.6-12.0); Monocytes # 1.1 10*3/uL (0.11-0.8); Monocytes % 11.6 % (1.7-12.7); NRBC # 0.02 10*3/uL; Neutrophils % 76.5 % (38.7-73.9); Platelet Count 204 T/CUMM (130-400); Red Cell Distribution Width 20.1 % (9.3-17.3); White Blood Count 9.1 T/CUMM (4-12)
[2017-10-04 12:44] LABS: INR 1.2; PT Patient Result 12.7 SECS
[2017-10-04] MEDS ORDERED: FUROSEMIDE 40 MG/4 ML VIAL ONE (12:56)
[2017-10-04 12:59] LABS: Albumin 2.2 G/DL (3.4-5.0); Bilirubin,Total 3.6 MG/DL (0.2-1.0); Calcium 7.5 MG/DL (8.5-10.1); Osmolality,Calculated 283.8 MOS/KG (273-304); Potassium 3.6 MMOL/L (3.5-5.1); Total Protein 6.9 G/DL (6.4-8.3)
[2017-10-04] MEDS ORDERED: HYDROmorphone 2 MG/1 ML VIAL IV STA (13:59)
[2017-10-04] MEDS ORDERED: HYDROmorphone 2 MG/1 ML VIAL ONE (14:02)
[2017-10-04] MEDS ORDERED: ONDANSETRON 4 MG/2 ML VIAL IV PRN (14:07)
[2017-10-04] MEDS ORDERED: DEXTROSE 50% 25 GM/50 ML VIAL IV PRN (14:07)
[2017-10-04] MEDS ORDERED: ACETAMINOPHEN 325 MG TABLET PO PRN (14:07)
[2017-10-04] MEDS ORDERED: NICOTINE 21 MG/24 HR PATCH TRANSDERM PRN (14:07)
[2017-10-04] MEDS ORDERED: GLUCAGON 1 MG VIAL IM PRN (14:07)
[2017-10-04] MEDS ORDERED: CEFTAROLINE 600 MG in SODIUM CHLORIDE 0.9% 100 ML IV STA (14:07)
[2017-10-04] MEDS ORDERED: ALBUTEROL 2.5 MG/3 ML NEB RESP TX PRN (14:10)
[2017-10-04] MEDS ORDERED: CEFTAROLINE 600 MG VIAL IV ONE (14:16)
[2017-10-04] MEDS ORDERED: SODIUM CHLORIDE 0.9% 100 ML IV ONE (14:17)
[2017-10-04] MEDS: INSULIN LISPRO 100 UNIT/ML SUBCUT SCH ×2 (17:13→21:21)
[2017-10-04] MEDS: ENOXAPARIN 30 MG/0.3 ML SYRINGE SUBCUT SCH (18:32)
[2017-10-04] MEDS: MORPHINE 10 MG/1 ML VIAL IV PRN (21:17)
[2017-10-04] MEDS: TRIAMCINOLONE 0.1% CREAM 15 GM TUBE TOP SCH ×2 (21:19→21:22)
[2017-10-04] MEDS: SODIUM CHLORIDE 0.45% 1,000 ML IV SCH (22:50)
[2017-10-05] MEDS: CEFTAROLINE 200 MG in SODIUM CHLORIDE 0.9% 100 ML IV SCH ×2 (02:44→17:35)
[2017-10-05] MEDS: MORPHINE 10 MG/1 ML VIAL IV PRN (04:06)
[2017-10-05] MEDS: SODIUM CHLORIDE 0.45% 1,000 ML IV SCH (05:51)
[2017-10-05 06:27] LABS: Basophils % 0.3 % (0.0-0.8); Eosinophils # 0.4 10*3/uL (0.0-0.87); Eosinophils % 4.9 % (0.00-10.9); Hematocrit 29.3 VOL% (42.0-52.0); Hemoglobin 9.2 GM/DL (14.0-18.0); Immature Granulocytes % 0.5 %; Immature Granulocytes Absolute 0.04 #; Lymphocytes # 1.2 10*3/uL (1.4-4.0); Mean Corpuscular HGB Conc 31.4 GM/DL (32-36); Mean Corpuscular Hemoglobin 31 PG (27-34); Mean Platelet Volume 11.1 FL (9.6-12.0); Monocytes # 0.8 10*3/uL (0.11-0.8); NRBC # 0.03 10*3/uL; Neutrophils # 6.2 10*3/uL (1.4-7.4); Neutrophils % 71.3 % (38.7-73.9); Platelet Count 233 T/CUMM (130-400); Red Blood Count 2.99 MC/CUMM (3.8-5.5); White Blood Count 8.6 T/CUMM (4-12)
[2017-10-05 06:54] LABS: Calcium 7.2 MG/DL (8.5-10.1); Osmolality,Calculated 284.7 MOS/KG (273-304); Potassium 3.7 MMOL/L (3.5-5.1)
[2017-10-05] MEDS ORDERED: SODIUM CHLORIDE 0.9% 250 ML IV SCH (08:30)
[2017-10-05] MEDS: INSULIN LISPRO 100 UNIT/ML SUBCUT SCH ×2 (08:30→11:49)
[2017-10-05] MEDS: TRIAMCINOLONE 0.1% CREAM 15 GM TUBE TOP SCH (09:35)
[2017-10-05 10:45] LABS: ABG Base Excess 0.3 MMOL/L (-2.5-2.5); ABG HCO3 24.7 MMOL/L (20-26); ABG PCO2 55.9 MM HG (35-48); ABG TCO2 25.4 MMOL/L (23-27); Glucose Heart Surgery 197 MG/DL (74-106); Hematocrit Heart Surgery 30.1 PERCENT (42-52); Hemoglobin Heart Surgery 9.7 G/DL (14.0-18.0); Potassium Heart/CVR 3.4 MMOL/L (3.5-5.1)
[2017-10-05] MEDS ORDERED: PROPOFOL 200 MG/20 ML VIAL IV ONE (10:55)
[2017-10-05] MEDS ORDERED: CALCIUM CHLORIDE 1,000 MG/10 ML VIAL IV ONE (10:56)
[2017-10-05] MEDS ORDERED: fentaNYL 100 MCG/2 ML VIAL ONE (10:56)
[2017-10-05] MEDS ORDERED: SEVOFLURANE 1 UNIT/15 MINUTE INH ONE (10:56)
[2017-10-05] MEDS ORDERED: MIDAZOLAM 2 MG/2 ML VIAL ONE (10:57)
[2017-10-05] MEDS ORDERED: ePHEDrine 50 MG/ML AMP ONE (10:57)
[2017-10-05] MEDS ORDERED: KETAMINE 500 MG/10 ML VIAL ONE (10:57)
[2017-10-05] MEDS ORDERED: SODIUM CHLORIDE 0.9% 500 ML IV ONE (10:58)
[2017-10-05] MEDS ORDERED: NEOSTIGMINE 10 MG/10 ML VIAL ONE (10:58)
[2017-10-05] MEDS ORDERED: GLYCOPYRROLATE 0.4 MG/2 ML VIAL ONE (10:58)
[2017-10-05] MEDS ORDERED: PHENYLEPHRINE 10 MG/1 ML VIAL IV ONE (10:58)
[2017-10-05] MEDS ORDERED: ONDANSETRON 4 MG/2 ML VIAL ONE (10:58)
[2017-10-05] MEDS ORDERED: ROCURONIUM 100 MG/10 ML VIAL IV ONE (10:58)
[2017-10-05 14:27] LABS: Calcium 7.3 MG/DL (8.5-10.1); Osmolality,Calculated 284.8 MOS/KG (273-304); Potassium 3.9 MMOL/L (3.5-5.1)
[2017-10-05] MEDS ORDERED: NOREPINEPHRINE 8 MG in SODIUM CHLORIDE 0.9% 242 ML IV SCH (16:00)
[2017-10-05] MEDS ORDERED: CISATRACURIUM 200 MG in SODIUM CHLORIDE 0.9% 180 ML IV SCH (16:00)
[2017-10-05] MEDS ORDERED: MIDAZOLAM 100 MG in SODIUM CHLORIDE 0.9% 80 ML IV SCH (16:00)
[2017-10-05] MEDS ORDERED: PHENYLEPHRINE DRIP 40 MG/250 ML PREMIX IV SCH (16:00)
[2017-10-05] MEDS ORDERED: fentaNYL INJ 1,250 MCG in SODIUM CHLORIDE 0.9% 225 ML IV SCH (16:00)
[2017-10-05] MEDS ORDERED: GLUCAGON 1 MG VIAL IM PRN (16:03)
[2017-10-05] MEDS ORDERED: DEXTROSE 50% 25 GM/50 ML VIAL IV PRN (16:03)
[2017-10-05] MEDS: SEVELAMER CARBONATE 800 MG TABLET PO SCH (17:36)
[2017-10-05] MEDS: ENOXAPARIN 30 MG/0.3 ML SYRINGE SUBCUT SCH (17:36)
[2017-10-05] MEDS: PANTOPRAZOLE 40 MG VIAL IV SCH (18:18)
[2017-10-05] MEDS: PROPOFOL 1,000 MG/100 ML BOTTLE IV SCH (19:00)
[2017-10-05] MEDS ORDERED: PERMETHRIN 5% CREAM 60 GM TUBE TOP SCH (21:00)
[2017-10-05] MEDS: INSULIN REGULAR 100 UNIT/ML IV SCH (21:36)
[2017-10-05] MEDS: METOPROLOL TARTRATE 100 MG TABLET PO SCH (21:47)
[2017-10-05] MEDS: MINERAL OIL/PETROLATUM OPH OINT 3.5 GM TUBE BOTH EYES SCH (21:47)
[2017-10-06] MEDS: TRIAMCINOLONE 0.1% CREAM 15 GM TUBE TOP SCH ×3 (00:47→23:59)
[2017-10-06] MEDS: INSULIN REGULAR 100 UNIT/ML IV SCH ×5 (00:57→20:17)
[2017-10-06] MEDS: PROPOFOL 1,000 MG/100 ML BOTTLE IV SCH ×3 (01:12→18:44)
[2017-10-06 01:33] LABS: Basophils % 0.3 % (0.0-0.8); Eosinophils # 0.2 10*3/uL (0.0-0.87); Eosinophils % 2.7 % (0.00-10.9); Hematocrit 26.6 VOL% (42.0-52.0); Hemoglobin 8.3 GM/DL (14.0-18.0); Immature Granulocytes % 0.3 %; Immature Granulocytes Absolute 0.02 #; Lymphocytes # 0.7 10*3/uL (1.4-4.0); Lymphocytes % 9.4 % (21.2-54.2); Mean Corpuscular HGB Conc 31.2 GM/DL (32-36); Mean Corpuscular Hemoglobin 31 PG (27-34); Mean Corpuscular Volume 98.2 FL (87-102); Mean Platelet Volume 11.2 FL (9.6-12.0); Monocytes # 0.7 10*3/uL (0.11-0.8); Monocytes % 9.4 % (1.7-12.7); NRBC # 0.02 10*3/uL; Neutrophils # 5.7 10*3/uL (1.4-7.4); Neutrophils % 77.9 % (38.7-73.9); Platelet Count 203 T/CUMM (130-400); Red Blood Count 2.71 MC/CUMM (3.8-5.5); Red Cell Distribution Width 20.2 % (9.3-17.3); White Blood Count 7.3 T/CUMM (4-12)
[2017-10-06 02:00] LABS: Albumin 1.9 G/DL (3.4-5.0); Bilirubin,Total 2.9 MG/DL (0.2-1.0); Calcium 6.9 MG/DL (8.5-10.1); Osmolality,Calculated 288.5 MOS/KG (273-304); Potassium 4.1 MMOL/L (3.5-5.1); Total Protein 5.8 G/DL (6.4-8.3)
[2017-10-06 02:13] LABS: Osmolality,Calculated 289.4 MOS/KG (273-304); Potassium 4.1 MMOL/L (3.5-5.1)
[2017-10-06] MEDS: CEFTAROLINE 200 MG in SODIUM CHLORIDE 0.9% 100 ML IV SCH ×2 (03:43→15:36)
[2017-10-06 05:13] LABS: ABG Base Excess 7.1 MMOL/L (-2.5-2.5); ABG HCO3 30.9 MMOL/L (20-26); ABG PCO2 38.6 MM HG (35-48); ABG PH 7.508 (7.35-7.45); ABG TCO2 28.2 MMOL/L (23-27)
[2017-10-06] MEDS ORDERED: LOSARTAN 50 MG TABLET PO SCH (09:00)
[2017-10-06] MEDS ORDERED: PRAVASTATIN 20 MG TABLET PO SCH (09:00)
[2017-10-06] MEDS: SEVELAMER CARBONATE 800 MG TABLET PO SCH ×3 (09:41→18:08)
[2017-10-06] MEDS: MINERAL OIL/PETROLATUM OPH OINT 3.5 GM TUBE BOTH EYES SCH ×3 (09:42→23:59)
[2017-10-06] MEDS: METOPROLOL TARTRATE 100 MG TABLET PO SCH ×2 (09:42→23:59)
[2017-10-06] MEDS ORDERED: ASPIRIN EC 81 MG TABLET PO SCH (12:00)
[2017-10-06] MEDS: ENOXAPARIN 30 MG/0.3 ML SYRINGE SUBCUT SCH (15:36)
[2017-10-06] MEDS: PANTOPRAZOLE 40 MG VIAL IV SCH (18:08)
[2017-10-06] MEDS ORDERED: PHENYLEPHRINE DRIP 40 MG/250 ML PREMIX IV ONE (19:54)
[2017-10-06] MEDS ORDERED: PHENYLEPHRINE DRIP 40 MG/250 ML PREMIX IV SCH (20:00)
[2017-10-06] MEDS ORDERED: NOREPINEPHRINE 4 MG/4 ML VIAL IV ONE (20:30)
[2017-10-06] MEDS ORDERED: NOREPINEPHRINE 16 MG in SODIUM CHLORIDE 0.9% 234 ML IV SCH (20:30)
[2017-10-06 20:37] LABS: ABG Base Excess -2.1 MMOL/L (-2.5-2.5); ABG HCO3 17.9 MMOL/L (20-26); ABG Oxygen Saturation 95.7 % (95-100); ABG PO2 76.6 MM HG (80-95); ABG TCO2 18.5 MMOL/L (23-27); Allen Test Positive; Pt O2 Delivery Device Ventilator
[2017-10-06 20:40] LABS: ABG PCO2 18.6 MM HG (35-48); ABG PH 7.602 (7.35-7.45)
[2017-10-06] MEDS ORDERED: EPINEPHrine 1 MG/ML VIAL ONE (20:41)
[2017-10-06 21:21] LABS: ABG Base Excess -8.5 MMOL/L (-2.5-2.5); ABG HCO3 18.1 MMOL/L (20-26); ABG Oxygen Saturation 99.7 % (95-100); ABG PCO2 41.8 MM HG (35-48); ABG PH 7.255 (7.35-7.45); ABG PO2 349.2 MM HG (80-95); ABG TCO2 19.4 MMOL/L (23-27)
[2017-10-06] MEDS ORDERED: VASOPRESSIN 20 UNITS/ML VIAL ONE (21:25)
[2017-10-06 21:28] LABS: Basophils # 0.1 10*3/uL (0.0-0.2); Basophils % 0.6 % (0.0-0.8); Eosinophils # 0.3 10*3/uL (0.0-0.87); Eosinophils % 1.9 % (0.00-10.9); Immature Granulocytes % 2.2 %; Immature Granulocytes Absolute 0.35 #; Lymphocytes # 6.5 10*3/uL (1.4-4.0); Mean Corpuscular HGB Conc 28.8 GM/DL (32-36); Mean Corpuscular Hemoglobin 31 PG (27-34); Mean Corpuscular Volume 106.8 FL (87-102); Mean Platelet Volume 11.9 FL (9.6-12.0); Monocytes # 1.1 10*3/uL (0.11-0.8); Monocytes % 6.9 % (1.7-12.7); NRBC # 0.13 10*3/uL; Neutrophils # 7.9 10*3/uL (1.4-7.4); Neutrophils % 48.4 % (38.7-73.9); Platelet Count 188 T/CUMM (130-400); Red Blood Count 2.92 MC/CUMM (3.8-5.5); Red Cell Distribution Width 21.2 % (9.3-17.3); White Blood Count 16.2 T/CUMM (4-12)
[2017-10-06 21:30] LABS: Hematocrit 31.2 VOL% (42.0-52.0)
[2017-10-06] MEDS ORDERED: VASOPRESSIN 100 UNITS in SODIUM CHLORIDE 0.9% 95 ML IV SCH (21:30)
[2017-10-06] MEDS ORDERED: SODIUM BICARB INJ 150 MEQ in STERILE WATER INJ 1,000 ML IV SCH (21:30)
[2017-10-06 22:08] LABS: Albumin 2.1 G/DL (3.4-5.0); Bilirubin,Total 3.1 MG/DL (0.2-1.0); Calcium 8.3 MG/DL (8.5-10.1); Osmolality,Calculated 284.4 MOS/KG (273-304); Potassium 4.5 MMOL/L (3.5-5.1); Total Protein 6.5 G/DL (6.4-8.3)
[2017-10-06 22:09] LABS: Troponin I Only 0.23 NG/ML (0.00-0.045)
[2017-10-06 22:35] VITALS: BP 37/22
== END 2017-10-06 22:25 | disposition expired | DRG 239 ==
LOC: EDUNIT# → EDBD → N.ED 12:02 → SUATTDRO 13:34 → N.EDINP 13:34 → N.3E 15:57 → N.CC 10-05 10:47
PROVIDERS: ADMIT Internal Medicine; ATTEND Internal Medicine